=== PATIENT | male | born 1990 | race Caucasian/White ===

== ENCOUNTER → 2016-09-12 | Outpatient (REF) | payer MEDICAID ==
[2016-09-12 13:50] LABS: HEPATITIS B SURFACE ANTIBODY NEGATIVE (POSITIVE)
[2016-09-12 13:56] LABS: ALBUMIN 4.2 GM/DL (3.2-5.2); ALKALINE PHOSPHATASE 107 U/L (45-117); ALT/SGPT 16 U/L (12-78); ANION GAP 7 MEQ/L (8-16); AST/SGOT 12 U/L (15-37); BILIRUBIN,TOTAL 0.4 MG/DL (0.2-1.0); BLOOD UREA NITROGEN 17 MG/DL (7-18); CALCIUM LEVEL 9.7 MG/DL (8.5-10.1); CARBON DIOXIDE LEVEL 26 MEQ/L (21-32); CHLORIDE LEVEL 103 MEQ/L (98-107); CREATININE FOR GFR 1.11 MG/DL (0.70-1.30); GLOMERULAR FILTRATION RATE > 60.0 (>60); GLUCOSE, FASTING 81 MG/DL (70-105); POTASSIUM SERUM 4.5 MEQ/L (3.5-5.1); SODIUM LEVEL 136 MEQ/L (136-145); TOTAL PROTEIN 8.4 GM/DL (6.4-8.2)
== END ==
LOC: M SFHCPLAZ 10:25
PROVIDERS: ATTEND Internal Medicine Infectious Disease
DX: B20 Human immunodeficiency virus [HIV] disease (principal); B45.1 Cerebral cryptococcosis

== ENCOUNTER → 2016-10-11 | Outpatient (REF) | payer MEDICAID ==
[~2016-10-11] MED LIST: AZIT600T PO; CLAR10CA3 PO; FLUC200T2 PO; IBUP200T45 PO; IRON18TA2 PO; MEPR750S PO; MULT1TAB10 PO; ODEF1TAB PO
[2016-10-11 15:57] LABS: ALBUMIN 4.1 GM/DL (3.2-5.2); ALBUMIN/GLOBULIN RATIO 1.14 (1.00-1.93); ALKALINE PHOSPHATASE 118 U/L (45-117); ALT/SGPT 18 U/L (12-78); ANION GAP 8 MEQ/L (8-16); AST/SGOT 13 U/L (15-37); BILIRUBIN,TOTAL 0.4 MG/DL (0.2-1.0); BLOOD UREA NITROGEN 18 MG/DL (7-18); CALCIUM LEVEL 9.7 MG/DL (8.5-10.1); CARBON DIOXIDE LEVEL 26 MEQ/L (21-32); CHLORIDE LEVEL 101 MEQ/L (98-107); CREATININE FOR GFR 0.87 MG/DL (0.70-1.30); GLOMERULAR FILTRATION RATE > 60.0 (>60); GLUCOSE, FASTING 77 MG/DL (70-105); POTASSIUM SERUM 4.4 MEQ/L (3.5-5.1); SODIUM LEVEL 135 MEQ/L (136-145); TOTAL PROTEIN 7.7 GM/DL (6.4-8.2)
[2016-10-17 00:06] LABS: %CD3+CD4+CD8+ 0.4 % (Not Estab.); %CD3+CD4-CD8+ 73.4 % (Not Estab.); %CD3+CD4-CD8- 6.1 % (Not Estab.); ABS CD3+CD4+CD8+ 4 /uL (Not Estab.); ABS CD3+CD4+CD8- 60 /uL (Not Estab.); ABS CD3+CD4-CD8+ 734 /uL (Not Estab.); ABS CD3+CD4-CD8- 61 /uL (Not Estab.); CD4/CD8 NYSDOH RATIO 0.08 (Not Estab.); Eosinophils 6 % (.); HCT 40.1 % (37.5-51.0); HGB 13.3 g/dL (12.6-17.7); Monocytes 9 % (.); Neutrophils 65 % (.); WBC 5.4 x10E3/uL (3.4-10.8)
== END ==
LOC: M SFHCPLAZ 12:51
PROVIDERS: ATTEND Internal Medicine Infectious Disease
DX: B20 Human immunodeficiency virus [HIV] disease (principal)

== ENCOUNTER → 2016-10-25 | Outpatient (CLI) | payer OTHER ==
[~2016-10-25] MED LIST changes: +ISOVUE-370 76% 100ML VIAL (Q9967) As Ordered ONE
--- NOTE | 2016-10-25 11:00 | REP ---
CT CHEST WITH CONTRAST: 10/25/2016 COMPARISON: CTA chest 08/24/2016 at [facility] in [place], [place]. Portable chest 08/24/2016. CLINICAL HISTORY: Mediastinal and hilar lymphadenopathy. Followup. TECHNIQUE: Patient received a bolus of 75 mL of Isovue-370, scanning through the chest with coronal and sagittal reconstructions. FINDINGS: The lung taylor are well inflated. 6 mm nodule seen on image 53 of series 201 in the superior segment of the right lower lobe, unchanged. It does not appear calcified. In the right lower lobe . There is a superior segment noncalcified 6.4 mm nodule as before. There is some minor patchy peripheral atelectatic change in the lateral segment of the right middle lobe with perihilar interstitial changes about the right hilum. In the left lung field, there is a 2 mm nodule in the left upper lobe peripherally on image 39, 1-2 mm nodule on image 26 peripherally as well. There are no other nodules in the left lung. No pleural effusion, lateral pleural thickening, calcified pleural plaque, or pleural-based mass. Mediastinal hilar adenopathy is again seen. Subcarinal region shows a lymph node 1.8 cm in diameter, previously 22 mm. There is bilateral hilar adenopathy with short axis of conglomerate nodes at the right hilum up to 24 mm currently, previously 24 mm. There is confluent right paratracheal adenopathy at lease 6 x 0.6 cm long x 2.4 cm transverse, and it extends from the hilum upward. AP window, prevascular space nodes carinal nodes are also seen with the precarinal node 18 mm today, previously 16 mm. There are axillary nodes, larger left than right, with the largest single node having 11.7 mm short axis on that right side, all subcentimeter nodes on the left. I cannot confirm definite supraclavicular mass. Thyroid lobes symmetric. In the upper abdomen, the liver and spleen are seen only in part and are not grossly enlarged. There is no adrenal mass. No retrocrural mass. Visualized pancreas intact. Upper poles of kidneys intact. Chest wall soft tissues symmetric. Bone windows show sternum, manubrium, medial clavicles to the AC joints. Humeral heads, scapulae, and ribs all intact. No compression deformity or destructive lesion in the spine. The thoracic aorta is without aneurysm or dissection. The central pulmonary arteries are without filling defect. IMPRESSION: 1. Bilateral hilar and mediastinal adenopathy with bulky confluent nodes as described. Some of the nodes are smaller, other conglomerate nodes are larger and, overall, there is increase in the mediastinal and hilar adenopathy. 2. No aortic aneurysm or dissection. No central pulmonary emboli. 3. Axillary nodes bilaterally, right greater than left. No supraclavicular mass. 4. No cardiomegaly, pericardial thickening, or pericardial effusion. 5. Perihilar interstitial changes on the right adjacent to those nodes with a few small pulmonary nodules as described. These appear unchanged. The differential considerations would include lymphoma, sarcoidosis, infectious etiologies with granulomatous disease. There are no calcifications in any of these nodes. The bones are intact. No abnormalities in the upper abdomen. Signed by Magdy Dc MD 10/26/2016 10:54 A
== END ==
LOC: M RAD 08:15
PROVIDERS: ATTEND Internal Medicine Infectious Disease
DX: R59.0 Localized enlarged lymph nodes (principal)
CPT/HCPCS: 71260; Q9967

== ENCOUNTER → 2016-11-16 | Outpatient (CLI) | payer OTHER ==
[~2016-11-16] MED LIST changes: -ISOVUE-370 76% 100ML VIAL (Q9967) As Ordered ONE
--- NOTE | 2016-11-17 09:37 | REP ---
Clinical: Severe headaches with history of meningitis. Technique: Standard pre and post contrast MRI brain sequencing using 10 ml ProHance gadolinium based contrast material. Findings: The ventricles, sulci, and cisterns are symmetric and normal. Arteaga-white differentiation is maintained. No obvious mass or mass effect. No extra-axial fluid collection. No enhancing mass lesion or abnormality identified. Midbrain and midline structures are symmetric and normal. Incidental note is made of a 2.5 cm mucocele in the left maxillary sinus. Impression: Normal pre and postcontrast MRI of the brain. Signed by Norm Lopez MD 11/17/2016 09:29 A
== END ==
LOC: M RAD 15:13
PROVIDERS: ATTEND Internal Medicine Infectious Disease
DX: B45.1 Cerebral cryptococcosis (principal)
CPT/HCPCS: 70553; A9576

== ENCOUNTER 2016-11-21 11:33 | Day surgery (SDC) | payer OTHER ==
[~2016-11-21] VITALS: Ht 165.1 cm; Wt 53.5 kg
[~2016-11-21 11:33] MED LIST changes: -IBUP200T45 PO
[2016-11-21] MEDS ORDERED: LR 1,000 ML IV SCH ×2 (11:45→14:30)
[2016-11-21] MEDS ORDERED: IBUP200T45 PO (12:29)
[2016-11-21] MEDS ORDERED: MIDAZOLAM INJ 2 MG/2 ML VIAL (J2250) As Ordered ONE (12:43)
[2016-11-21] MEDS ORDERED: fentaNYL 100 MCG/2 ML INJECTION (J3010) As Ordered ONE ×2 (12:43→13:13)
[2016-11-21] MEDS ORDERED: EPINEPHrine 1MG/10ML SYRINGE 1.5IN As Ordered ONE (12:47)
[2016-11-21] MEDS ORDERED: LIDOCAINE 1% SDV INJ 30 ML VIAL As Ordered ONE (12:47)
[2016-11-21] MEDS ORDERED: THROMBIN SOLN 20,000 UNITS KIT As Ordered ONE (12:47)
[2016-11-21] MEDS ORDERED: LIDOCAINE VISCOUS 2% SOLN 15ML UDC As Ordered ONE (12:47)
[2016-11-21] MEDS ORDERED: CETACAINE SPRAY 20GM (FLOOR STOCK) As Ordered ONE (13:11)
[2016-11-21] MEDS ORDERED: ONDANSETRON 4MG/2ML VIAL (J2405) IV PRN (14:30)
[2016-11-21] MEDS ORDERED: fentaNYL 100 MCG/2 ML INJECTION (J3010) IV PRN (14:30)
--- NOTE | 2016-11-21 14:51 | RO ---
DATE OF PROCEDURE: 11/21/2016 PREOPERATIVE DIAGNOSIS: Mediastinal and hilar adenopathy. POSTOPERATIVE DIAGNOSIS: Mediastinal and hilar adenopathy with endobronchial lesions. FINDINGS: Lymphadenopathy with endobronchial lesions. PROCEDURE: Bronchoscopy with endobronchial biopsy, endobronchial ultrasound with fine-needle aspiration. PROCEDURALIST: Gene Spain DO FLIGHT FOLLOWER: None. ANESTHESIA: General. Please refer to their records for details. ESTIMATED BLOOD LOSS: 10-15 mL. DRAINS: No drains. SPECIMENS OBTAINED: 1. Left mainstem endobronchial biopsy, right middle lobe endobronchial biopsy, right lower lobe endobronchial biopsy. 2. Right middle lobe wash. 3. FNA right hilar and 4R lymph node FNAs under ultrasound for cell block and flow cytometry. 4. FNA wash for culture, fungal smear, PCP and cell count. DESCRIPTION OF PROCEDURE: After informed consent was reviewed with the patient in the preoperative area, he was brought back to OR number six. A time out was performed with patient identifiers, identifying correct site and correct procedure. The case was then handed over to anesthesia. Anesthesia intubated with an 8.5 endotracheal tube. After adequate anesthesia, I prepped the airway with Cetacaine spray. The 1T180 bronchoscope was then inserted into the airway after a second time out confirming correct site, correct position and with two patient identifiers. All airways were suctioned. Trachea was midline. Rachel was splayed. There were multiple endobronchial lesions predominantly in the bronchus intermedius, right middle lobe and right lower lobe; however, there was a large polyp in the left proximal mainstem. RB 1 through 3 was inspected without endobronchial lesions. RB 4 and 5 had no distal endobronchial lesion, however, there was a small polyps at the takeoff of the R5 airway. Multiple lesions in the proximal right lower lobe, however, the distal right lower lobe bronchus RB 6 through 10 was without obstructing lesion. LB 1 through 10 was clear without any obstructing polyps. The lesions were mucous filled. I then performed endobronchial biopsies and near removal of the polyp in the left mainstem. I then proceeded to the right middle lobe and removed a polyps there. I then removed polyps in the right lower lobe and bronchus intermedius. These were sent for pathology. I washed the airways and this was sent for culture, fungal culture, PCP. Then, after adequate sampling and hemostasis, there was significant bleeding from the biopsy of the left mainstem polyp. I treated this with epinephrine 1 mg. After adequate cessation of bleeding, the bronchoscope was removed and then the endobronchial ultrasound was inserted. The 4R node was then identified. Fine needle aspiration was taken of this multiple times for cell block, flow cytometry and culture. I then proceeded to sample from the right hilar lymph node. Pictures were taken of this. The subcarinal node was fairly small and adjacent to the larger blood vessels and there was significant tissue sampling from the 4R node so I did not sample from this area. The endobronchial ultrasound scope was then removed and the 1T180 bronchoscope was reinserted. Hemostasis was ensured and the bronchoscope was removed. The case was handed back over to anesthesia. The patient was extubated in recovery. Postprocedure chest x-ray is pending.
--- NOTE | 2016-11-21 16:08 | REP ---
Clinical: Status post bronchoscopy . Comparison: 08/24/2016 . Findings: Hilar adenopathy is suggested. The cardiac silhouette is normal. The lung taylor are clear without acute consolidation, effusion, or pneumothorax. Skeletal structures are intact. Impression: Suspected hilar adenopathy. No acute cardiopulmonary process otherwise noted. No pneumothorax. Signed by Norm Lopez MD 11/21/2016 03:59 P
[2016-11-21 16:30] VITALS: BP 138/90
[2016-11-21] MEDS ORDERED: ALBUTEROL SULFATE 2.5 MG/0.5 ML INH NEB SOLN As Ordered ONE (16:34)
[2016-11-21] MEDS ORDERED: ALBUTEROL SULFATE 2.5 MG/0.5 ML INH NEB SOLN INH ONE (17:00)
[2016-11-21 18:08] LABS: COLOR PINK (COLORLESS); TNC < 20 cells/uL (0-20)
[2016-11-21 18:09] LABS: BAL DIFF IF INDICATED? NO (NO)
== END 2016-11-21 16:45 | disposition home or self-care (01) ==
LOC: M SDC 11:33
PROVIDERS: ATTEND Internal Medicine Pulmonary Disease
DX: R59.0 Localized enlarged lymph nodes (principal); J98.09 Other diseases of bronchus, not elsewhere classified; B20 Human immunodeficiency virus [HIV] disease; B45.9 Cryptococcosis, unspecified; R07.9 Chest pain, unspecified; R06.02 Shortness of breath; R06.83 Snoring; Z88.0 Allergy status to penicillin; Z88.1 Allergy status to other antibiotic agents; Z88.8 Allergy status to other drugs, medicaments and biological substances; Z79.899 Other long term (current) drug therapy

== ENCOUNTER → 2016-11-23 | Outpatient (CLI) | payer OTHER ==
[~2016-11-23] MED LIST changes: +IBUP200T45 PO
[2016-11-23 13:09] LABS: INR 0.94
[2016-11-23 13:21] LABS: BASO % 0.4 % (0.0-1.0); EOS # 0.2 K/mm3 (0.0-0.50); EOS % 2.2 % (0.0-3.0); LARGE UNSTAINED CELL % 1.6 % (0.0-4.0); LYMPH % 13.8 % (24.0-44.0); MEAN CORPUSCULAR HEMOGLOBIN 31.5 pg (27.0-33.0); MEAN CORPUSCULAR HGB CONC 34.4 g/dl (32.0-36.5); MEAN CORPUSCULAR VOLUME 91.6 fl (80.0-96.0); MONO # 0.5 K/mm3 (0.0-0.8); NEUTROPHILS # 5.4 K/mm3 (1.8-7.7); NEUTROPHILS % 74.9 % (36.0-66.0); PLATELET COUNT, AUTOMATED 215 k/mm3 (150-450); RED CELL DISTRIBUTION WIDTH 13.7 % (11.5-14.5); WHITE BLOOD COUNT 7.2 K/mm3 (4.0-10.0)
[2016-11-23 13:22] LABS: LARGE UNSTAINED CELL # 0.1 K/mm3 (0.0-0.4)
[2016-11-23 14:51] LABS: GLUCOSE CSF 51 MG/DL (40-75)
[2016-11-23 15:25] LABS: ALBUMIN 3.8 GM/DL (3.2-5.2); ALKALINE PHOSPHATASE 92 U/L (45-117); ALT/SGPT 23 U/L (12-78); ANION GAP 9 MEQ/L (8-16); AST/SGOT 12 U/L (15-37); BILIRUBIN,TOTAL 0.2 MG/DL (0.2-1.0); BLOOD UREA NITROGEN 17 MG/DL (7-18); CALCIUM LEVEL 9.6 MG/DL (8.5-10.1); CARBON DIOXIDE LEVEL 27 MEQ/L (21-32); CHLORIDE LEVEL 109 MEQ/L (98-107); CREATININE FOR GFR 0.93 MG/DL (0.70-1.30); GLOMERULAR FILTRATION RATE > 60.0 (>60); GLUCOSE, FASTING 81 MG/DL (70-105); POTASSIUM SERUM 3.9 MEQ/L (3.5-5.1); SODIUM LEVEL 145 MEQ/L (136-145); TOTAL PROTEIN 7.6 GM/DL (6.4-8.2)
[2016-11-23 16:44] LABS: RBC CSF AUTO 4 /mm3 (0-0); WBC CSF AUTO 2 /mm3 (0-10)
--- NOTE | 2016-11-23 16:55 | REP ---
Procedure: For guidance for lumbar puncture. History: Meningitis The procedure was performed under the direct supervision of Dr. Boyd. The risks and benefits of the procedure were explained to the patient and informed consent was obtained. The L3-4 interspace was localized using fluoroscopic guidance. The skin was prepped and draped in a sterile fashion. 1% lidocaine was used as a local anesthetic. Using fluoroscopic guidance a 22-gauge spinal needle was inserted and advanced into the thecal sac. opening pressure measured 21 cm of water. 12 ml of spinal fluid was withdrawn and sent to lab. The the patient tolerated the procedure well and there were no immediate complications. 5 seconds of fluoro time was utilized for this procedure. Reviewed by ALISA Blackwell 11/23/2016 04:29 PSigned by Efe Boyd MD 11/23/2016 04:47 P
[2016-11-23 17:09] LABS: APPEARANCE, CSF CLEAR (CLEAR); COLOR, CSF COLORLESS (COLORLESS); CSF DIFF IF INDICATED? NO (NO); CSF TUBE# CELL CNT TUBE 4
[2016-11-23 22:35] LABS: CSF DILUENT LOT # 6333
[2016-11-25 00:06] LABS: %CD3+CD4+CD8+ 0.2 % (Not Estab.); %CD3+CD4+CD8- 6.2 % (Not Estab.); %CD3+CD4-CD8+ 70.1 % (Not Estab.); %CD3+CD4-CD8- 4.8 % (Not Estab.); ABS CD3+CD4+CD8+ 2 /uL (Not Estab.); ABS CD3+CD4+CD8- 56 /uL (Not Estab.); ABS CD3+CD4-CD8+ 631 /uL (Not Estab.); ABS CD3+CD4-CD8- 43 /uL (Not Estab.); CD4/CD8 NYSDOH RATIO 0.09 (Not Estab.); Eosinophils 2 % (.); HGB 14.5 g/dL (12.6-17.7); Monocytes 11 % (.); Neutrophils 71 % (.); WBC 5.7 x10E3/uL (3.4-10.8)
[2016-11-27 00:06] LABS: CRYPTOCOCCUS ANTIGEN SER Negative (Negative)
[2016-12-25 11:13] LABS: CRYPTOCOCCUS ANTIGEN CSF POSITIVE
[2016-12-25 11:14] LABS: CAP MANDATED REFLEX TO CULTURE SEE SEPARATE REPORT
== END ==
LOC: M LAB 12:21
PROVIDERS: ATTEND Internal Medicine Infectious Disease
DX: B45.1 Cerebral cryptococcosis (principal)

== ENCOUNTER → 2017-03-19 | Outpatient (REF) | payer OTHER ==
[2017-03-19 14:09] LABS: ALBUMIN 4.4 GM/DL (3.2-5.2); ALBUMIN/GLOBULIN RATIO 1.38 (1.00-1.93); ALKALINE PHOSPHATASE 110 U/L (45-117); ALT/SGPT 27 U/L (12-78); ANION GAP 8 MEQ/L (8-16); AST/SGOT 18 U/L (7-37); BILIRUBIN,TOTAL 0.4 MG/DL (0.2-1.0); BLOOD UREA NITROGEN 11 MG/DL (7-18); CALCIUM LEVEL 9.4 MG/DL (8.5-10.1); CARBON DIOXIDE LEVEL 27 MEQ/L (21-32); CHLORIDE LEVEL 104 MEQ/L (98-107); CREATININE FOR GFR 1.09 MG/DL (0.70-1.30); GLOMERULAR FILTRATION RATE > 60.0 (>60); GLUCOSE, FASTING 77 MG/DL (70-105); POTASSIUM SERUM 4.4 MEQ/L (3.5-5.1); SODIUM LEVEL 139 MEQ/L (136-145); TOTAL PROTEIN 7.6 GM/DL (6.4-8.2)
[2017-03-19 18:44] LABS: APPEARANCE, URINE CLEAR (CLEAR); BACTERIA, URINE AUTO NEGATIVE (NEGATIVE); BILIRUBIN, URINE AUTO NEGATIVE (NEGATIVE); BLOOD, URINE BLOOD NEGATIVE (NEGATIVE); COLOR, URINE YELLOW (YELLOW); GLUCOSE, URINE (UA) AUTO NEGATIVE (NEGATIVE); KETONE, URINE AUTO NEGATIVE (NEGATIVE); LEUKOCYTE ESTERASE, URINE AUTO NEGATIVE (NEGATIVE); NITRITE, URINE AUTO NEGATIVE (NEGATIVE); PROTEIN, URINE AUTO NEGATIVE (NEGATIVE); RBC, URINE AUTO 0 /HPF (0-3); SPECIFIC GRAVITY URINE AUTO 1.005 (1.002-1.035); SQUAMOUS EPITHELIAL CELL UR AU 0 /HPF (0-6); UROBILINOGEN, URINE AUTO 0.2 mg/dL (0.0-2.0); WBC, URINE AUTO 0 /HPF (0-3)
[2017-03-19 21:14] LABS: CHLAMYDIA DNA AMPLIFICATION NEGATIVE (NEGATIVE); GC DNA AMPLIFICATION NEGATIVE (NEGATIVE)
[2017-03-21 14:13] LABS: HIV-1 RNA PCR QUANT 2 LC550285 <20 copies/mL (.)
[2017-03-22 00:07] LABS: % CD8 Pos Lymph 65.8 % (12.0-35.5); %CD4 Pos Lymphs 11.6 % (30.8-58.5); ABS Eosinophils 0.2 x10E3/uL (0.0-0.4); ABS Lymphs 0.9 x10E3/uL (0.7-3.1); ABS Monocytes 0.5 x10E3/uL (0.1-0.9); Abs CD4 Helper 104 /uL (359-1519); Abs CD8 Suppres 592 /uL (109-897); CD4/CD8 Ratio 0.18 (0.92-3.72); CRYPTOCOCCUS ANTIGEN SER Negative (Negative); Eosinophils 5 % (Not Estab.); HCT 43.7 % (37.5-51.0); HGB 14.8 g/dL (13.0-17.7); Immature Grans 0 % (Not Estab.); Lymphocytes 25 % (Not Estab.); MCH 30.6 pg (26.6-33.0); MCHC 33.9 g/dL (31.5-35.7); MCV 91 fL (79-97); Monocytes 13 % (Not Estab.); Neutrophils 56 % (Not Estab.); Platelets 224 x10E3/uL (150-379); RBC 4.83 x10E6/uL (4.14-5.80); RDW 14.6 % (12.3-15.4); WBC 3.6 x10E3/uL (3.4-10.8)
== END ==
LOC: M SFHCPLAZ 10:34
DX: B20 Human immunodeficiency virus [HIV] disease (principal); B45.1 Cerebral cryptococcosis

== ENCOUNTER → 2017-03-19 | Outpatient (CLI) | payer OTHER | LOC: M RAD 09:33 | DX: B20 Human immunodeficiency virus [HIV] disease (principal); R59.0 Localized enlarged lymph nodes | CPT/HCPCS: 71250 ==

== ENCOUNTER → 2017-06-04 | Outpatient (CLI) | payer OTHER | LOC: M ADAMS 16:16 | DX: J40 Bronchitis, not specified as acute or chronic (principal) | CPT/HCPCS: 71046 ==

== ENCOUNTER → 2017-06-20 | Outpatient (CLI) | payer OTHER ==
[~2017-06-20] MED LIST changes: -AZIT600T PO; -CLAR10CA3 PO; -FLUC200T2 PO; -IBUP200T45 PO; -IRON18TA2 PO; +ISOVUE-370 76% 100ML VIAL (Q9967) As Ordered; -MEPR750S PO; -MULT1TAB10 PO; -ODEF1TAB PO
== END ==
LOC: M RAD 15:52
DX: R59.9 Enlarged lymph nodes, unspecified (principal)
CPT/HCPCS: Q9967

== ENCOUNTER → 2017-07-08 | Outpatient (CLI) | payer OTHER ==
[~2017-07-08] MED LIST changes: -ISOVUE-370 76% 100ML VIAL (Q9967) As Ordered; +PROHANCE 279.3MG/ML 5ML VIAL (A9576) As Ordered
== END ==
LOC: M RAD 15:31
DX: R51 Headache (principal); B45.1 Cerebral cryptococcosis
CPT/HCPCS: A9576

== ENCOUNTER → 2017-07-17 | Outpatient (REF) | payer BC, OTHER ==
[2017-07-17 19:33] LABS: ALBUMIN/GLOBULIN RATIO 1.21 (1.00-1.93); ALKALINE PHOSPHATASE 114 U/L (45-117); ALT/SGPT 18 U/L (12-78); ANION GAP 6 MEQ/L (8-16); AST/SGOT 13 U/L (7-37); BILIRUBIN,TOTAL 0.5 MG/DL (0.2-1.0); BLOOD UREA NITROGEN 16 MG/DL (7-18); CALCIUM LEVEL 8.9 MG/DL (8.5-10.1); CARBON DIOXIDE LEVEL 27 MEQ/L (21-32); CHLORIDE LEVEL 107 MEQ/L (98-107); GLOMERULAR FILTRATION RATE > 60.0 (>60); GLUCOSE, FASTING 74 MG/DL (70-100); SODIUM LEVEL 140 MEQ/L (136-145); TOTAL PROTEIN 7.3 GM/DL (6.4-8.2)
[2017-07-20 08:30] LABS: %CD4 Pos Lymphs 15.7 % (30.8-58.5); ABS Eosinophils 0.2 x10E3/uL (0.0-0.4); ABS Lymphs 1.3 x10E3/uL (0.7-3.1); ABS Monocytes 0.4 x10E3/uL (0.1-0.9); ABS Neutophils 2.3 x10E3/uL (1.4-7.0); Abs CD4 Helper 204 /uL (359-1519); Abs CD8 Suppres 832 /uL (109-897); CD4/CD8 Ratio 0.25 (0.92-3.72); Eosinophils 4 % (Not Estab.); HCT 41.7 % (37.5-51.0); HIV-1 RNA PCR QUANT 2 LC550285 <20 copies/mL (.); Immature Grans 0 % (Not Estab.); Lymphocytes 31 % (Not Estab.); MCHC 33.6 g/dL (31.5-35.7); MCV 92 fL (79-97); Monocytes 10 % (Not Estab.); Neutrophils 54 % (Not Estab.); Platelets 194 x10E3/uL (150-379); RBC 4.52 x10E6/uL (4.14-5.80); RDW 14.8 % (12.3-15.4); WBC 4.3 x10E3/uL (3.4-10.8)
== END ==
LOC: M SFHCPLAZ 17:09
DX: B20 Human immunodeficiency virus [HIV] disease (principal)
CPT/HCPCS: 80053

== ENCOUNTER → 2017-07-17 | Outpatient (REF) | payer BC, OTHER ==
[2017-07-18 11:54] LABS: HEMATOCRIT 40.1 % (42.0-52.0); HEMOGLOBIN 13.7 g/dl (13.5-17.5); RED BLOOD COUNT 4.49 10^6/uL (4.30-6.10); WHITE BLOOD COUNT 4.5 10^3/uL (4.0-10.0)
[2017-07-18 11:55] LABS: IMMATURE GRANULOCYTE % 0.2 % (0-3.0); LYMPH % 29.8 % (24.0-44.0); MEAN CORPUSCULAR HEMOGLOBIN 30.5 pg (27.0-33.0); MEAN CORPUSCULAR HGB CONC 34.2 g/dl (32.0-36.5); MEAN CORPUSCULAR VOLUME 89.3 fl (80.0-96.0); MONO % 12.4 % (0.0-5.0); NEUTROPHILS % 53.2 % (36.0-66.0); PLATELET COUNT, AUTOMATED 208 10^3/uL (150-450); RED CELL DISTRIBUTION WIDTH 13.9 % (11.5-14.5)
[2017-07-18 11:56] LABS: BASO % 0.4 % (0.0-1.0); EOS # 0.2 10^3/uL (0.0-0.50); LYMPH # 1.4 10^3/uL (1.5-6.5); MONO # 0.6 10^3/uL (0.0-0.8); NEUTROPHILS # 2.4 10^3/uL (1.8-7.7)
[2017-07-18 11:57] LABS: ERYTHROCYTE SEDIMENTATION RATE 5 mm/hr (0-15)
[2017-07-18 12:25] LABS: TOTAL 25(OH) VITAMIN D 32.5 NG/ML (30.0-100.0)
[2017-07-18 12:28] LABS: ALBUMIN/GLOBULIN RATIO 1.33 (1.00-1.93); ALKALINE PHOSPHATASE 107 U/L (45-117); ALT/SGPT 20 U/L (12-78); ANION GAP 8 MEQ/L (8-16); AST/SGOT 13 U/L (7-37); BILIRUBIN,TOTAL 0.4 MG/DL (0.2-1.0); BLOOD UREA NITROGEN 15 MG/DL (7-18); CALCIUM LEVEL 8.9 MG/DL (8.5-10.1); CARBON DIOXIDE LEVEL 26 MEQ/L (21-32); CHLORIDE LEVEL 106 MEQ/L (98-107); GLOMERULAR FILTRATION RATE > 60.0 (>60); GLUCOSE, FASTING 69 MG/DL (70-100); RHEUMATOID FACTOR QUANT < 10.0 IU/ML (<15.0); SODIUM LEVEL 140 MEQ/L (136-145)
[2017-07-19 14:13] LABS: ANTINUCLEAR ANTIBODIES DIRECT Negative (Negative)
== END ==
LOC: M LABDRAWC 11:34
DX: R51 Headache (principal)
CPT/HCPCS: 84443

== ENCOUNTER → 2017-11-28 | Outpatient (REF) | payer BC ==
[2017-11-28 14:13] LABS: ALBUMIN 4.9 GM/DL (3.2-5.2); ALKALINE PHOSPHATASE 87 U/L (45-117); ALT/SGPT 26 U/L (12-78); ANION GAP 8 MEQ/L (8-16); AST/SGOT 14 U/L (7-37); BILIRUBIN,TOTAL 0.5 MG/DL (0.2-1.0); BLOOD UREA NITROGEN 15 MG/DL (7-18); CALCIUM LEVEL 10.3 MG/DL (8.5-10.1); CARBON DIOXIDE LEVEL 27 MEQ/L (21-32); CHLORIDE LEVEL 105 MEQ/L (98-107); CREATININE FOR GFR 0.93 MG/DL (0.70-1.30); GLOMERULAR FILTRATION RATE > 60.0 (>60); GLUCOSE, FASTING 66 MG/DL (70-100); POTASSIUM SERUM 4.7 MEQ/L (3.5-5.1); SODIUM LEVEL 140 MEQ/L (136-145); TOTAL PROTEIN 8.4 GM/DL (6.4-8.2)
[2017-12-03 00:07] LABS: ABS Eosinophils 0.1 x10E3/uL (0.0-0.4); ABS Lymphs 0.9 x10E3/uL (0.7-3.1); ABS Monocytes 0.5 x10E3/uL (0.1-0.9); ABS Neutophils 2.4 x10E3/uL (1.4-7.0); Abs CD4 Helper 171 /uL (359-1519); Abs CD8 Suppres 522 /uL (109-897); CD4/CD8 Ratio 0.33 (0.92-3.72); CRYPTOCOCCUS ANTIGEN SER Positive (Negative); Eosinophils 2 % (Not Estab.); HCT 47.9 % (37.5-51.0); HGB 16.6 g/dL (13.0-17.7); HIV-1 RNA PCR QUANT 2 LC550285 <20 copies/mL (.); Immature Grans 0 % (Not Estab.); Lymphocytes 22 % (Not Estab.); MCH 31.1 pg (26.6-33.0); MCHC 34.7 g/dL (31.5-35.7); MCV 90 fL (79-97); Monocytes 14 % (Not Estab.); Neutrophils 61 % (Not Estab.); Platelets 198 x10E3/uL (150-379); RBC 5.33 x10E6/uL (4.14-5.80); RDW 14.3 % (12.3-15.4); WBC 3.9 x10E3/uL (3.4-10.8)
== END ==
LOC: M SFHCPLAZ 10:58
DX: B20 Human immunodeficiency virus [HIV] disease (principal); B45.1 Cerebral cryptococcosis
CPT/HCPCS: 80053

== ENCOUNTER → 2017-12-06 | Outpatient (REF) | payer BC | LOC: M LAB REF 12:26 | DX: J02.9 Acute pharyngitis, unspecified (principal) | CPT/HCPCS: 87081 ==

== ENCOUNTER 2017-12-26 12:27 | Emergency (ER) | payer BC ==
[2017-12-26] MEDS: NS 1,000 ML IV (14:18)
[2017-12-26 14:26] LABS: BASO % 0.2 % (0.0-1.0); EOS # 0.1 10^3/uL (0.0-0.50); EOS % 1.4 % (0.0-3.0); HEMATOCRIT 46.5 % (42.0-52.0); IMMATURE GRANULOCYTE % 0.2 % (0-3.0); LYMPH # 1.2 10^3/uL (1.5-6.5); LYMPH % 21.2 % (24.0-44.0); MEAN CORPUSCULAR HGB CONC 34.4 g/dl (32.0-36.5); MEAN CORPUSCULAR VOLUME 90.1 fl (80.0-96.0); MONO # 0.5 10^3/uL (0.0-0.8); MONO % 9.1 % (0.0-5.0); NEUTROPHILS # 3.8 10^3/uL (1.8-7.7); NEUTROPHILS % 67.9 % (36.0-66.0); PLATELET COUNT, AUTOMATED 214 10^3/uL (150-450); RED BLOOD COUNT 5.16 10^6/uL (4.30-6.10); RED CELL DISTRIBUTION WIDTH 13.6 % (11.5-14.5); WHITE BLOOD COUNT 5.6 10^3/uL (4.0-10.0)
[2017-12-26 14:45] LABS: LACTIC ACID SEPSIS PROTOCOL 0.5 MMOL/L (0.4-2.0)
[2017-12-26 14:45] LABS: ALBUMIN 4.6 GM/DL (3.2-5.2); ALBUMIN/GLOBULIN RATIO 1.48 (1.00-1.93); ALKALINE PHOSPHATASE 87 U/L (45-117); ALT/SGPT 26 U/L (12-78); ANION GAP 9 MEQ/L (8-16); AST/SGOT 15 U/L (7-37); BILIRUBIN,DIRECT 0.2 MG/DL (0.0-0.2); BILIRUBIN,TOTAL 0.6 MG/DL (0.2-1.0); BLOOD UREA NITROGEN 15 MG/DL (7-18); C REACTIVE PROTEIN QUANTITATIV < 0.30 MG/DL (0.00-0.30); CALCIUM LEVEL 9.9 MG/DL (8.5-10.1); CARBON DIOXIDE LEVEL 27 MEQ/L (21-32); CHLORIDE LEVEL 105 MEQ/L (98-107); CREATININE FOR GFR 0.99 MG/DL (0.70-1.30); GLOMERULAR FILTRATION RATE > 60.0 (>60); GLUCOSE, FASTING 81 MG/DL (70-100); POTASSIUM SERUM 4.2 MEQ/L (3.5-5.1); SODIUM LEVEL 141 MEQ/L (136-145); TOTAL PROTEIN 7.7 GM/DL (6.4-8.2)
[2017-12-26 15:04] LABS: ERYTHROCYTE SEDIMENTATION RATE 2 mm/hr (0-15)
[2017-12-26 16:30] LABS: KETONE, URINE AUTO RFX TRACE mg/dL (NEGATIVE); LEUKOCYTE ESTERASE UR AUTO RFX NEGATIVE (NEGATIVE); NITRITE, URINE AUTO RFX NEGATIVE (NEGATIVE); RBC, URINE AUTO RFX 0 /HPF (0-3); SPECIFIC GRAVITY UR AUTO RFX 1.005 (1.002-1.035); SQUAM EPITHELIAL CELL UR AURFX 0 /HPF (0-6); WBC, URINE AUTO RFX 0 /HPF (0-3)
[2017-12-26] MEDS ORDERED: PROHANCE 279.3MG/ML 5ML VIAL (A9576) As Ordered (18:00)
[2017-12-26] MEDS: ACETAMINOPHEN 325 MG TAB PO (19:53)
[2017-12-26] MEDS: METOCLOPRAMIDE INJ 10MG/2ML VIAL (J2765) IV (19:54)
== END 2017-12-26 21:18 | disposition home or self-care (01) ==
LOC: M ED 12:27
DX: G44.209 Tension-type headache, unspecified, not intractable (principal); Z21 Asymptomatic human immunodeficiency virus [HIV] infection status; Z88.0 Allergy status to penicillin; Z88.8 Allergy status to other drugs, medicaments and biological substances
CPT/HCPCS: A9576

== ENCOUNTER → 2018-01-24 | Outpatient (CLI) | payer BC | LOC: M PAIN 13:00 | DX: G43.709 Chronic migraine without aura, not intractable, without status migrainosus (principal); Z21 Asymptomatic human immunodeficiency virus [HIV] infection status; J30.2 Other seasonal allergic rhinitis; Z79.899 Other long term (current) drug therapy; Z88.0 Allergy status to penicillin; Z88.8 Allergy status to other drugs, medicaments and biological substances; Z86.61 Personal history of infections of the central nervous system | CPT/HCPCS: G0463 ==

== ENCOUNTER 2018-02-05 07:56 | Emergency (ER) | payer BC ==
[2018-02-05] MEDS: KETOROLAC 30 MG/ML VIAL (J1885) IV (09:13)
[2018-02-05] MEDS: NS 1,000 ML IV (09:20)
[2018-02-05] MEDS: METOCLOPRAMIDE INJ 10MG/2ML VIAL (J2765) IV (09:20)
[2018-02-05 09:29] LABS: BASO % 0.3 % (0.0-1.0); EOS # 0.1 10^3/uL (0.0-0.50); EOS % 1.4 % (0.0-3.0); HEMATOCRIT 47.7 % (42.0-52.0); HEMOGLOBIN 16.4 g/dl (13.5-17.5); IMMATURE GRANULOCYTE % 0.3 % (0-3.0); LYMPH # 0.6 10^3/uL (1.5-6.5); MEAN CORPUSCULAR HEMOGLOBIN 30.9 pg (27.0-33.0); MEAN CORPUSCULAR HGB CONC 34.4 g/dl (32.0-36.5); MEAN CORPUSCULAR VOLUME 89.8 fl (80.0-96.0); MONO # 0.6 10^3/uL (0.0-0.8); MONO % 7.5 % (0.0-5.0); NEUTROPHILS # 6.6 10^3/uL (1.8-7.7); NEUTROPHILS % 82.5 % (36.0-66.0); PLATELET COUNT, AUTOMATED 183 10^3/uL (150-450); RED BLOOD COUNT 5.31 10^6/uL (4.30-6.10); RED CELL DISTRIBUTION WIDTH 13.1 % (11.5-14.5)
[2018-02-05 10:14] LABS: ANION GAP 4 MEQ/L (8-16); BLOOD UREA NITROGEN 14 MG/DL (7-18); CALCIUM LEVEL 8.9 MG/DL (8.5-10.1); CARBON DIOXIDE LEVEL 29 MEQ/L (21-32); CHLORIDE LEVEL 106 MEQ/L (98-107); CREATININE FOR GFR 0.98 MG/DL (0.70-1.30); GLOMERULAR FILTRATION RATE > 60.0 (>60); GLUCOSE, FASTING 88 MG/DL (70-100); POTASSIUM SERUM 4.3 MEQ/L (3.5-5.1); SODIUM LEVEL 139 MEQ/L (136-145)
== END 2018-02-05 12:57 | disposition home or self-care (01) ==
LOC: M ED 07:56
DX: G97.1 Other reaction to spinal and lumbar puncture (principal); B20 Human immunodeficiency virus [HIV] disease; Z79.899 Other long term (current) drug therapy; Z88.0 Allergy status to penicillin; Z88.8 Allergy status to other drugs, medicaments and biological substances
CPT/HCPCS: J1885

== ENCOUNTER 2018-02-05 13:14 | Outpatient (CLI) | payer BC | END 2018-02-05 15:50 | disposition home or self-care (01) | LOC: M OPP 13:14 → M RROUT 15:50 | DX: T88.59XA Other complications of anesthesia, initial encounter (principal) | CPT/HCPCS: 62273 ==

== ENCOUNTER → 2018-02-05 | Outpatient (REF) | payer BC | LOC: M LAB REF 09:58 | DX: G96.9 Disorder of central nervous system, unspecified (principal) | CPT/HCPCS: 36415 ==

== ENCOUNTER → 2018-02-17 | Outpatient (REF) | payer BC ==
[2018-02-17 16:23] LABS: ALBUMIN 4.2 GM/DL (3.2-5.2); ALKALINE PHOSPHATASE 80 U/L (45-117); ALT/SGPT 20 U/L (12-78); ANION GAP 4 MEQ/L (8-16); AST/SGOT 12 U/L (7-37); BILIRUBIN,TOTAL 0.3 MG/DL (0.2-1.0); BLOOD UREA NITROGEN 17 MG/DL (7-18); CALCIUM LEVEL 9.2 MG/DL (8.5-10.1); CARBON DIOXIDE LEVEL 30 MEQ/L (21-32); CHLORIDE LEVEL 106 MEQ/L (98-107); CREATININE FOR GFR 0.93 MG/DL (0.70-1.30); GLOMERULAR FILTRATION RATE > 60.0 (>60); GLUCOSE, FASTING 83 MG/DL (70-100); POTASSIUM SERUM 4.5 MEQ/L (3.5-5.1); SODIUM LEVEL 140 MEQ/L (136-145); TOTAL PROTEIN 7.2 GM/DL (6.4-8.2)
[2018-02-20 14:16] LABS: % CD8 Pos Lymph 57.6 % (12.0-35.5); %CD4 Pos Lymphs 19.4 % (30.8-58.5); ABS Eosinophils 0.1 x10E3/uL (0.0-0.4); ABS Lymphs 1.2 x10E3/uL (0.7-3.1); ABS Monocytes 0.6 x10E3/uL (0.1-0.9); ABS Neutophils 2.8 x10E3/uL (1.4-7.0); Abs CD4 Helper 233 /uL (359-1519); Abs CD8 Suppres 691 /uL (109-897); CD4/CD8 Ratio 0.34 (0.92-3.72); Eosinophils 2 % (Not Estab.); HCT 45.2 % (37.5-51.0); HGB 15.2 g/dL (13.0-17.7); HIV-1 RNA PCR QUANT 2 LC550285 <20 copies/mL (.); Immature Grans 0 % (Not Estab.); Lymphocytes 26 % (Not Estab.); MCH 31.1 pg (26.6-33.0); MCHC 33.6 g/dL (31.5-35.7); MCV 92 fL (79-97); Monocytes 12 % (Not Estab.); Neutrophils 60 % (Not Estab.); Platelets 245 x10E3/uL (150-379); RBC 4.89 x10E6/uL (4.14-5.80); RDW 14.3 % (12.3-15.4); WBC 4.7 x10E3/uL (3.4-10.8)
== END ==
LOC: M SFHCPLAZ 13:14
DX: B20 Human immunodeficiency virus [HIV] disease (principal)
CPT/HCPCS: 80053

== ENCOUNTER → 2018-06-10 | Outpatient (REF) | payer BC ==
[~2018-06-10] MED LIST changes: +AZIT600T PO; +BACT800T5 PO; +CLAR10CA3 PO; +CYCL10TA PO; +FLUC200T2 PO; +GABA-1171; +IBUP200T45 PO; +IMIT50TA PO; +IRON18TA2 PO; +MEPR750S PO; +MULT1TAB10 PO; +NORC1TAB4 PO; +NORT10CA2; +ODEF1TAB PO; -PROHANCE 279.3MG/ML 5ML VIAL (A9576) As Ordered; +REGL10TA6 PO
[2018-06-10 17:03] LABS: ALBUMIN 4.5 GM/DL (3.2-5.2); ALT/SGPT 22 U/L (12-78); BILIRUBIN,TOTAL 0.5 MG/DL (0.2-1.0); BLOOD UREA NITROGEN 20 MG/DL (7-18); CALCIUM LEVEL 9.5 MG/DL (8.5-10.1); CARBON DIOXIDE LEVEL 27 MEQ/L (21-32); CHLORIDE LEVEL 104 MEQ/L (98-107); CREATININE FOR GFR 1.12 MG/DL (0.70-1.30); GLOMERULAR FILTRATION RATE > 60.0 (>60); GLUCOSE, FASTING 73 MG/DL (70-100); POTASSIUM SERUM 4.1 MEQ/L (3.5-5.1); SODIUM LEVEL 139 MEQ/L (136-145); TOTAL PROTEIN 7.6 GM/DL (6.4-8.2)
[2018-06-10 17:10] LABS: VITAMIN B12 LEVEL 869 PG/ML
[2018-06-10 17:12] LABS: FOLATE 13.6 NG/ML
[2018-06-10 19:42] LABS: APPEARANCE, URINE CLEAR (CLEAR); BACTERIA, URINE AUTO NEGATIVE (NEGATIVE); BILIRUBIN, URINE AUTO NEGATIVE (NEGATIVE); BLOOD, URINE BLOOD NEGATIVE (NEGATIVE); COLOR, URINE COLORLESS (YELLOW); GLUCOSE, URINE (UA) AUTO NEGATIVE (NEGATIVE); KETONE, URINE AUTO NEGATIVE (NEGATIVE); LEUKOCYTE ESTERASE, URINE AUTO NEGATIVE (NEGATIVE); MUCUS, URINE SMALL (NEGATIVE); NITRITE, URINE AUTO NEGATIVE (NEGATIVE); PROTEIN, URINE AUTO NEGATIVE (NEGATIVE); RBC, URINE AUTO 0 /HPF (0-3); SPECIFIC GRAVITY URINE AUTO 1.003 (1.002-1.035); SQUAMOUS EPITHELIAL CELL UR AU 0 /HPF (0-6); UROBILINOGEN, URINE AUTO 0.2 mg/dL (0.0-2.0); WBC, URINE AUTO 0 /HPF (0-3)
[2018-06-10 20:46] LABS: CHLAMYDIA DNA AMPLIFICATION NEGATIVE (NEGATIVE); GC DNA AMPLIFICATION NEGATIVE (NEGATIVE)
[2018-06-11 11:13] LABS: HEPATITIS C VIRUS ABY INDEX 0.1 INDEX (<0.8)
[2018-06-13 00:07] LABS: % CD8 Pos Lymph 54.6 % (12.0-35.5); %CD4 Pos Lymphs 22.8 % (30.8-58.5); ABS Eosinophils 0.1 x10E3/uL (0.0-0.4); ABS Lymphs 1.7 x10E3/uL (0.7-3.1); ABS Monocytes 0.5 x10E3/uL (0.1-0.9); ABS Neutophils 3.8 x10E3/uL (1.4-7.0); Abs CD4 Helper 388 /uL (359-1519); Abs CD8 Suppres 928 /uL (109-897); CD4/CD8 Ratio 0.42 (0.92-3.72); Eosinophils 2 % (Not Estab.); HCT 47.2 % (37.5-51.0); HGB 15.8 g/dL (13.0-17.7); Immature Grans 0 % (Not Estab.); Lymphocytes 28 % (Not Estab.); MCH 30.7 pg (26.6-33.0); MCHC 33.5 g/dL (31.5-35.7); MCV 92 fL (79-97); Monocytes 8 % (Not Estab.); Neutrophils 62 % (Not Estab.); Platelets 235 x10E3/uL (150-379); RBC 5.14 x10E6/uL (4.14-5.80); RDW 13.9 % (12.3-15.4)
[2018-06-14 00:07] LABS: HIV-1 RNA PCR QUANT 2 LC550285 <20 copies/mL (.)
== END ==
LOC: M SFHCPLAZ 14:23 → M SFHCADAM 14:25
PROVIDERS: ATTEND Internal Medicine Infectious Disease
DX: B20 Human immunodeficiency virus [HIV] disease (principal); R20.0 Anesthesia of skin

== ENCOUNTER 2018-06-16 09:41 | Emergency (ER) | payer BC ==
[~2018-06-16] VITALS: Ht 165.1 cm; Wt 58.2 kg
[~2018-06-16 09:41] MED LIST changes: -AZIT600T PO; -GABA-1171; -NORC1TAB4 PO; +NORC1TAB7 PO; +[UNRECOGNIZED DRUG - CODE] PO
[2018-06-16] MEDS ORDERED: GABA-1171 (09:53)
--- NOTE | 2018-06-16 11:10 | REP ---
Right elbow: Four views. History: Pain after fall. Findings: Four views right elbow show normal bones, joints and soft tissues. There is no evidence of fracture or subluxation or joint effusion. Impression: Negative right elbow radiographs. Electronically Signed by Efe Boyd MD 06/16/2018 11:01 A
--- NOTE | 2018-06-16 11:11 | REP ---
Left knee series: Five views. History: Trauma. Injury in a fall. Findings: Five views of the left knee demonstrate normal bones, joints and soft tissues. Impression: Negative left knee radiographs. Electronically Signed by Efe Boyd MD 06/16/2018 11:02 A
--- NOTE | 2018-06-16 11:12 | REP ---
Right wrist series: Four views. History: Injury in a fall. Findings: Four views right wrist show overall normal mineralization. No fracture or subluxation is seen. Impression: Negative right wrist radiographs. Electronically Signed by Efe Boyd MD 06/16/2018 11:03 A
--- NOTE | 2018-06-16 11:16 | REP ---
Chest two views HISTORY: Trauma Comparison: 06/04/2017 The lungs are clear. The heart is normal in size. The pulmonary vasculature is normal in appearance. The bony structure is intact. IMPRESSION: No acute disease. Electronically Signed by Chava Alexander MD 06/16/2018 11:06 A
[2018-06-16 12:00] VITALS: BP 156/97
== END 2018-06-16 12:01 | disposition home or self-care (01) ==
LOC: M ED 09:41
DX: T14.8XXA Other injury of unspecified body region, initial encounter (principal); W19.XXXA Unspecified fall, initial encounter; Y92.099 Unspecified place in other non-institutional residence as the place of occurrence of the external cause; Y93.9 Activity, unspecified; Y99.9 Unspecified external cause status; Z79.899 Other long term (current) drug therapy; Z88.0 Allergy status to penicillin; Z88.8 Allergy status to other drugs, medicaments and biological substances

== ENCOUNTER → 2018-07-01 | Outpatient (CLI) | payer BC ==
[~2018-07-01] MED LIST changes: +GABA-1171; +ISOVUE-370 76% 100ML VIAL (Q9967) As Ordered ONE
--- NOTE | 2018-07-01 09:57 | REP ---
CT CHEST WITH IV CONTRAST: HISTORY: Chronic cough. Comparison is made with chest x-ray from June 16, 2018. There is a comparison chest CT study from June 20, 2017. CT CONTRAST DOSE: 75 mL of intravenous Isovue 370. CT FINDINGS: Preliminary digital cake icer and packer radiograph is unremarkable. There is a new patchy peribronchovascular pattern of infiltrate in the left lower lobe consistent with acute inflammatory disease (pneumonia). There is a right lower lobe noncalcified pulmonary nodule visible on page 48 of 116 in series of 201 of today's study. This measures 6 mm in greatest diameter. It measured 6 mm on the June 20, 2017 study. In fact, it is unchanged from the August 24, 2016 prior exam. No other significant pulmonary nodule is seen. No pulmonary mass lesion is observed. There is mild bilateral hilar and mediastinal lymphadenopathy. A right pretracheal lymph node measures 14 mm in short axis dimension, previously 13 mm by my measurement. These lymph nodes appear to be unchanged. Right paratracheal lymph node enlargement is seen measuring 15 mm across, previously 20 mm. Small hilar lymph nodes are unchanged. There is some residual thymic tissue in the anterior mediastinum which appears to be unchanged. No adrenal lesion is seen on either side. The visualized upper abdominal structures are unremarkable. No bony abnormality. IMPRESSION: 1. New peribronchovascular left lower lobe infiltrate consistent with pneumonia. 2. Stable noncalcified 6 mm granulomatous nodule right lower lobe. 3. Mild bilateral hilar and mediastinal lymphadenopathy unchanged from most recent prior study of June 20, 2017. The adenopathy is generally less prominent than on the August 24, 2016 study. Electronically Signed by Efe Boyd MD 07/01/2018 10:25 A
== END ==
LOC: M RAD 08:04
PROVIDERS: ATTEND Internal Medicine Infectious Disease
DX: R05 Cough (principal)
CPT/HCPCS: 71260; Q9967

== ENCOUNTER → 2018-07-22 | Outpatient (REF) | payer BC ==
[~2018-07-22] MED LIST changes: -ISOVUE-370 76% 100ML VIAL (Q9967) As Ordered ONE
[2018-07-22 19:38] LABS: HEMATOCRIT 45.1 % (42.0-52.0); MEAN CORPUSCULAR HEMOGLOBIN 30.4 pg (27.0-33.0); MEAN CORPUSCULAR HGB CONC 33.3 g/dl (32.0-36.5); MEAN CORPUSCULAR VOLUME 91.3 fl (80.0-96.0); PLATELET COUNT, AUTOMATED 243 10^3/uL (150-450); RED BLOOD COUNT 4.94 10^6/uL (4.30-6.10); WHITE BLOOD COUNT 6.6 10^3/uL (4.0-10.0)
[2018-07-22 19:54] LABS: ALBUMIN 4.4 GM/DL (3.2-5.2); ALT/SGPT 20 U/L (12-78); BILIRUBIN,DIRECT < 0.1 MG/DL (0.0-0.2); BILIRUBIN,TOTAL 0.4 MG/DL (0.2-1.0); FREE T4 0.85 NG/DL (0.76-1.46); TOTAL PROTEIN 7.1 GM/DL (6.4-8.2)
== END ==
LOC: M LABDRWAD 19:21
PROVIDERS: ATTEND Internal Medicine Infectious Disease
DX: B20 Human immunodeficiency virus [HIV] disease (principal); R53.82 Chronic fatigue, unspecified

== ENCOUNTER → 2018-09-23 | Outpatient (CLI) | payer BC ==
--- NOTE | 2018-09-23 22:18 | REP ---
Clinical: Left knee pain Technique: AP, lateral, bilateral oblique and sunrise views left knee . Findings: The osseous structures and joint spaces are intact and normal. There is no evidence for acute fracture or dislocation. No joint effusion is appreciated. Surrounding soft tissues are unremarkable. No subcutaneous emphysema or radiodense foreign body. Impression: Normal examination. No acute fracture or dislocation. Electronically Signed by Norm Lopez MD 09/23/2018 10:09 P
== END ==
LOC: M ADAMS 16:05
PROVIDERS: ATTEND Internal Medicine Infectious Disease
DX: M25.562 Pain in left knee (principal)

== ENCOUNTER → 2018-10-20 | Outpatient (REF) | payer BC ==
[2018-10-20 16:23] LABS: ALBUMIN 4.1 GM/DL (3.2-5.2); ALT/SGPT 19 U/L (12-78); BILIRUBIN,TOTAL 0.5 MG/DL (0.2-1.0); BLOOD UREA NITROGEN 14 MG/DL (7-18); C REACTIVE PROTEIN QUANTITATIV < 0.30 MG/DL (0.00-0.30); CALCIUM LEVEL 8.9 MG/DL (8.5-10.1); CARBON DIOXIDE LEVEL 28 MEQ/L (21-32); CHLORIDE LEVEL 108 MEQ/L (98-107); CREATININE FOR GFR 0.82 MG/DL (0.70-1.30); GLOMERULAR FILTRATION RATE > 60.0 (>60); GLUCOSE, FASTING 100 MG/DL (70-100); POTASSIUM SERUM 3.9 MEQ/L (3.5-5.1); SODIUM LEVEL 141 MEQ/L (136-145); TOTAL PROTEIN 7.3 GM/DL (6.4-8.2)
[2018-10-20 16:33] LABS: BASO % 0.3 % (0.0-1.0); EOS % 0.5 % (0.0-3.0); HEMATOCRIT 46.8 % (42.0-52.0); LYMPH # 0.9 10^3/uL (1.5-6.5); LYMPH % 25.3 % (24.0-44.0); MEAN CORPUSCULAR HEMOGLOBIN 30.9 pg (27.0-33.0); MEAN CORPUSCULAR HGB CONC 34.2 g/dl (32.0-36.5); MEAN CORPUSCULAR VOLUME 90.5 fl (80.0-96.0); MONO # 0.3 10^3/uL (0.0-0.8); MONO % 8.1 % (0.0-5.0); NEUTROPHILS # 2.5 10^3/uL (1.8-7.7); NEUTROPHILS % 65.8 % (36.0-66.0); PLATELET COUNT, AUTOMATED 210 10^3/uL (150-450); RED BLOOD COUNT 5.17 10^6/uL (4.30-6.10); WHITE BLOOD COUNT 3.7 10^3/uL (4.0-10.0)
[2018-10-20 19:16] LABS: ERYTHROCYTE SEDIMENTATION RATE 2 mm/hr (0-15)
[2018-10-24 00:11] LABS: % CD8 Pos Lymph 51.2 % (12.0-35.5); %CD4 Pos Lymphs 25.2 % (30.8-58.5); ABS Lymphs 0.9 x10E3/uL (0.7-3.1); ABS Monocytes 0.3 x10E3/uL (0.1-0.9); ABS Neutophils 2.4 x10E3/uL (1.4-7.0); Abs CD4 Helper 227 /uL (359-1519); Abs CD8 Suppres 461 /uL (109-897); CD4/CD8 Ratio 0.49 (0.92-3.72); Eosinophils 1 % (Not Estab.); HCT 46.1 % (37.5-51.0); HGB 15.4 g/dL (13.0-17.7); HIV-1 RNA PCR QUANT 2 LC550285 <20 copies/mL (.); Immature Grans 0 % (Not Estab.); Lyme Disease IgG/IgM Antibodie <0.91 ISR (0.00-0.90); Lyme Disease IgM Ab Quantitati <0.80 index (0.00-0.79); Lymphocytes 25 % (Not Estab.); MCH 30.6 pg (26.6-33.0); MCHC 33.4 g/dL (31.5-35.7); MCV 92 fL (79-97); Monocytes 7 % (Not Estab.); Neutrophils 67 % (Not Estab.); Platelets 242 x10E3/uL (150-450); RBC 5.04 x10E6/uL (4.14-5.80); RDW 14.9 % (12.3-15.4); WBC 3.6 x10E3/uL (3.4-10.8)
== END ==
LOC: M LABDRAW1 15:26
PROVIDERS: ATTEND Internal Medicine Infectious Disease
DX: B20 Human immunodeficiency virus [HIV] disease (principal); M25.562 Pain in left knee

== ENCOUNTER 2018-12-12 12:52 | Day surgery (SDC) | payer BC ==
[~2018-12-12] VITALS: Ht 165.1 cm; Wt 59.9 kg
[~2018-12-12 12:52] MED LIST changes: +**UNRESOLVED NON-FORMULARY MED ORDER XX SCH; +DOXY-350 PO; +ISON300T18 PO; +LR 1,000 ML IV ONE; +MULTCAP PO
[2018-12-12] MEDS ORDERED: CLINDAMYCIN 900 MG in IV 1 EA IV ONE (14:00)
[2018-12-12] MEDS ORDERED: PROPOFOL 200 MG/20 ML VIAL As Ordered ONE (14:26)
[2018-12-12] MEDS ORDERED: fentaNYL 100 MCG/2 ML INJECTION (J3010) As Ordered ONE ×2 (14:26→17:46)
[2018-12-12] MEDS ORDERED: LIDOCAINE 2% INJ 100 MG/5 ML SDV (FOR ANES.) As Ordered ONE (14:26)
[2018-12-12] MEDS ORDERED: MIDAZOLAM INJ 2 MG/2 ML VIAL (J2250) As Ordered ONE (14:27)
[2018-12-12] MEDS ORDERED: BUPIVACAINE/EPIN 0.25% 30 ML VIAL As Ordered ONE ×2 (15:37→16:48)
[2018-12-12] MEDS ORDERED: DESFLURANE 240 ML INHALANT As Ordered ONE (16:16)
[2018-12-12] MEDS ORDERED: ONDANSETRON 4MG/2ML VIAL (J2405) As Ordered ONE ×2 (16:33→17:38)
[2018-12-12] MEDS ORDERED: KETOROLAC 60 MG/2 ML VIAL (J1885) As Ordered ONE (16:34)
[2018-12-12] MEDS ORDERED: METOCLOPRAMIDE INJ 10MG/2ML VIAL (J2765) As Ordered ONE (16:34)
[2018-12-12] MEDS ORDERED: PERCOCET 5MG/325MG TAB As Ordered ONE (17:38)
[2018-12-12] MEDS ORDERED: PERCOCET 5MG/325MG TAB PO PRN (17:45)
[2018-12-12] MEDS ORDERED: HYDROMORPHONE HCL 0.5 MG/ 0.5 ML SYRINGE (J1170 PER 1) IV PRN (17:45)
[2018-12-12] MEDS ORDERED: LR 1,000 ML IV SCH (17:45)
[2018-12-12] MEDS ORDERED: ONDANSETRON 4MG/2ML VIAL (J2405) IV PRN (17:45)
[2018-12-12] MEDS: fentaNYL 100 MCG/2 ML INJECTION (J3010) IV PRN ×2 (17:46→17:51)
[2018-12-12] MEDS ORDERED: oxyCODONE 5MG TAB PO PRN ×2 (18:00)
[2018-12-12] MEDS ORDERED: MORPHINE 4 MG/ML 1ML VIAL/SYRINGE (J2270) IV PRN (18:00)
--- NOTE | 2018-12-12 18:07 | REP ---
FLUOROSCOPIC GUIDANCE FOR LEFT KNEE SURGERY: 12/12/2018. Clinical history: Osteochondritis Desiccans left knee. Findings: Multiple C-arm images were provided for Dr. Dye of the orthopedic division for left knee surgery. A variety of projections centered over the lateral femoral condyle with probes and drills utilized. Images are available on the PACS for review. Fluoroscopy time: 23 seconds. Electronically Signed by Magdy Dc MD 12/12/2018 08:25 P
--- NOTE | 2018-12-12 19:03 | RO ---
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 PROCEDURE: 1. Diagnostic knee scope. 2. Extensive synovectomy of medial and lateral compartment and anterior compartment. 3. Core decompression of left lateral femoral condyle with antegrade drilling. SURGEON: Dr. Carlos Dye DIELECTRIC TESTING MACHINE OPERATOR: None. ANESTHESIA: OPERATIVE INDICATIONS: This is a pleasant 28-year-old male who has a history of HIV and TB who came in for recurrence of lateral knee pain that failed nonoperative modes and methods of treatment. We discussed osteochondritis dissecans (OCD) debridement and microfracture versus antegrade femur drilling for core decompression. All benefits and risks were discussed, including but not limited to damage to surrounding structures, infection, incomplete relief and need for further surgery. The patient expressed understanding and agreement with this plan. PREOPERATIVE ANTIBIOTICS: 900 of Clindamycin. TOURNIQUET TIME: 42 minutes. COMPLICATIONS: None. SPECIMENS: None. DRAINS: None. DESCRIPTION OF PROCEDURE: The patient was rolled back to the operating room (OR), underwent general anesthesia, at which point a time-out was had for confirming site, side and surgery. We injected 20 mL of 0.25% Marcaine and epinephrine (epi) into the knee joint. At which point, we prepped and draped the patient in the usual fashion. We then had a second time-out confirming site, side and surgery and elevated the tourniquet up to 250 mmHg. At which point, we made two stab incisions for the medial and lateral portals. We started in the anterior patellofemoral compartment. We quickly encountered significant synovium blocking our entry both into the patellofemoral compartment along with medial and lateral compartment. My guess is that this is a reaction to the avascular necrosis. It required extensive debridement of all three compartments. Once adequate visualization was had, we examined both the anterior and medial and lateral compartments, all menisci intact along with all cartilage. We had more thorough inspection of that lateral compartment and the entire distal femur, did not notice any softening of the cartilage or any loose fragments or foreign bodies. At this point, we decided to proceed with antegrade drilling for core decompression of the left lateral condyle. We removed the scope, closed up the two portals with #3-0 nylon and then made a small 2 cm incision over the lateral epicondyle. Using the x-ray, we confirmed our position on both AP and lateral and drilled the entire area of AVN with a 2.5 mm drill bit. Once I felt like this was adequately decompressed, we irrigated the wound and closed with #3-0 Vicryl and #3-0 nylon. At which point, we dressed the wounds with Adaptic gauze, ABD, Kerlix and Anthony. We let down the tourniquet; it was timed approximately 40 minutes. At which point, the patient was awoken from anesthesia and taken stably to the post-anesthesia care unit (PACU). POSTOPERATIVE PLAN: The patient will be discharged home with pain medications. He will be touchdown weightbearing with crutches. We will likely continue this for approximately 6 weeks. However, I did encourage him for range of motion of the knee. He will be taken 325 mg aspirin once a day to help minimize deep vein thrombosis (DVT), prophylaxis.
[2018-12-12 19:30] VITALS: BP 136/83
== END 2018-12-12 19:35 | disposition home or self-care (01) ==
LOC: M SDC 12:52
PROVIDERS: ATTEND Orthopaedic Surgery Hand Surgery
DX: M87.052 Idiopathic aseptic necrosis of left femur (principal); M93.262 Osteochondritis dissecans, left knee; B20 Human immunodeficiency virus [HIV] disease; A69.20 Lyme disease, unspecified; A15.8 Other respiratory tuberculosis; Z79.899 Other long term (current) drug therapy; G43.909 Migraine, unspecified, not intractable, without status migrainosus; Z88.0 Allergy status to penicillin
CPT/HCPCS: 29876; 29879; 76000; J1885; J2250; J2405; J2765; J3010

== ENCOUNTER → 2019-01-20 | Outpatient (REF) | payer BC ==
[~2019-01-20] MED LIST changes: -**UNRESOLVED NON-FORMULARY MED ORDER XX SCH; -LR 1,000 ML IV ONE
[2019-01-20 16:36] LABS: ALBUMIN 4.3 GM/DL (3.2-5.2); ALT/SGPT 24 U/L (12-78); BILIRUBIN,TOTAL 0.7 MG/DL (0.2-1.0); BLOOD UREA NITROGEN 11 MG/DL (7-18); CALCIUM LEVEL 9.3 MG/DL (8.5-10.1); CARBON DIOXIDE LEVEL 31 MEQ/L (21-32); CHLORIDE LEVEL 104 MEQ/L (98-107); CREATININE FOR GFR 1.12 MG/DL (0.70-1.30); GLOMERULAR FILTRATION RATE > 60.0 (>60); GLUCOSE, FASTING 74 MG/DL (70-100); POTASSIUM SERUM 4.2 MEQ/L (3.5-5.1); SODIUM LEVEL 141 MEQ/L (136-145); TOTAL PROTEIN 7.6 GM/DL (6.4-8.2)
== END ==
LOC: M SFHCPLAZ 14:07
PROVIDERS: ATTEND Internal Medicine Infectious Disease
DX: B45.1 Cerebral cryptococcosis (principal); B20 Human immunodeficiency virus [HIV] disease

== ENCOUNTER → 2019-04-23 | Outpatient (REF) | payer BC ==
[2019-04-23 11:22] LABS: ALBUMIN 4.4 GM/DL (3.2-5.2); ALT/SGPT 25 U/L (12-78); BILIRUBIN,TOTAL 0.9 MG/DL (0.2-1.0); BLOOD UREA NITROGEN 12 MG/DL (7-18); CALCIUM LEVEL 9.6 MG/DL (8.5-10.1); CARBON DIOXIDE LEVEL 28 MEQ/L (21-32); CHLORIDE LEVEL 107 MEQ/L (98-107); CREATININE FOR GFR 0.98 MG/DL (0.70-1.30); GLOMERULAR FILTRATION RATE > 60.0 (>60); GLUCOSE, FASTING 72 MG/DL (70-100); POTASSIUM SERUM 4.8 MEQ/L (3.5-5.1); SODIUM LEVEL 141 MEQ/L (136-145); TOTAL PROTEIN 7.4 GM/DL (6.4-8.2)
[2019-04-28 00:06] LABS: %CD4 Pos Lymphs 23.5 % (30.8-58.5); ABS Lymphs 1.4 x10E3/uL (0.7-3.1); ABS Monocytes 0.4 x10E3/uL (0.1-0.9); ABS Neutophils 2.1 x10E3/uL (1.4-7.0); Abs CD4 Helper 329 /uL (359-1519); Abs CD8 Suppres 742 /uL (109-897); CD4/CD8 Ratio 0.44 (0.92-3.72); Eosinophils 1 % (Not Estab.); HCT 43.9 % (37.5-51.0); HGB 15.6 g/dL (13.0-17.7); HIV-1 RNA PCR QUANT 2 LC550285 <20 copies/mL (.); Immature Grans 0 % (Not Estab.); Lymphocytes 35 % (Not Estab.); MCHC 35.5 g/dL (31.5-35.7); MCV 87 fL (79-97); Monocytes 9 % (Not Estab.); Neutrophils 55 % (Not Estab.); Platelets 228 x10E3/uL (150-450); RBC 5.04 x10E6/uL (4.14-5.80); RDW 14.5 % (11.6-15.4); WBC 3.9 x10E3/uL (3.4-10.8)
== END ==
LOC: M SFHCPLAZ 08:05
PROVIDERS: ATTEND Internal Medicine Infectious Disease
DX: B20 Human immunodeficiency virus [HIV] disease (principal)

== ENCOUNTER → 2019-05-19 | Outpatient (CLI) | payer BC ==
--- NOTE | 2019-05-19 18:48 | REP ---
CHEST, TWO VIEWS: There is no evidence of acute infiltrate. No pleural effusion is seen. The heart is normal in size. The mediastinal silhouette is unremarkable. The visualized osseous structures are intact. IMPRESSION: No acute pulmonary disease. Electronically Signed by Zhou Arteaga MD 05/19/2019 08:04 P
== END ==
LOC: M LRY 16:57
PROVIDERS: ATTEND Physician Assistant
DX: R05 Cough (principal)

== ENCOUNTER → 2020-02-25 | Outpatient (REF) | payer BC ==
[~2020-02-25] MED LIST changes: +CYCL-707 PO; -CYCL10TA PO
[2020-02-25 12:02] LABS: ALBUMIN 4.2 GM/DL (3.2-5.2); ALT/SGPT 25 U/L (12-78); BILIRUBIN,TOTAL 0.6 MG/DL (0.2-1.0); BLOOD UREA NITROGEN 17 MG/DL (7-18); CALCIUM LEVEL 9.3 MG/DL (8.5-10.1); CARBON DIOXIDE LEVEL 26 MEQ/L (21-32); CHLORIDE LEVEL 110 MEQ/L (98-107); CHOLESTEROL LEVEL 183 MG/DL (<200); CHOLESTEROL RISK RATIO 3.452 (<5); CREATININE FOR GFR 0.88 MG/DL (0.70-1.30); GLOMERULAR FILTRATION RATE > 60.0 (>60); GLUCOSE, FASTING 73 MG/DL (70-100); HDL CHOLESTEROL 53 MG/DL (>40); LDL CHOLESTEROL 120 MG/DL (<100); NON-HDL-C 130 MG/DL; POTASSIUM SERUM 4.5 MEQ/L (3.5-5.1); SODIUM LEVEL 140 MEQ/L (136-145); TOTAL PROTEIN 7.1 GM/DL (6.4-8.2); TRIGLYCERIDES LEVEL 52 MG/DL (<150)
[2020-02-25 14:11] LABS: TOTAL 25(OH) VITAMIN D 32.4 NG/ML (30.0-100.0)
[2020-02-27 13:14] LABS: % CD8 Pos Lymph 51.5 % (12.0-35.5); %CD4 Pos Lymphs 27.9 % (30.8-58.5); ABS Lymphs 1.2 x10E3/uL (0.7-3.1); ABS Monocytes 0.4 x10E3/uL (0.1-0.9); ABS Neutophils 2.1 x10E3/uL (1.4-7.0); Abs CD4 Helper 335 /uL (359-1519); Abs CD8 Suppres 618 /uL (109-897); CD4/CD8 Ratio 0.54 (0.92-3.72); Eosinophils 1 % (Not Estab.); HCT 44.6 % (37.5-51.0); HGB 15.4 g/dL (13.0-17.7); HIV-1 RNA PCR QUANT 2 LC550285 <20 copies/mL (.); Immature Grans 0 % (Not Estab.); Lymphocytes 33 % (Not Estab.); MCH 30.7 pg (26.6-33.0); MCHC 34.5 g/dL (31.5-35.7); MCV 89 fL (79-97); Monocytes 12 % (Not Estab.); Neutrophils 54 % (Not Estab.); Platelets 206 x10E3/uL (150-450); RBC 5.01 x10E6/uL (4.14-5.80); RDW 12.8 % (11.6-15.4); WBC 3.8 x10E3/uL (3.4-10.8)
== END ==
LOC: M SFHCPLAZ 09:01
PROVIDERS: ATTEND Internal Medicine Infectious Disease
DX: B20 Human immunodeficiency virus [HIV] disease (principal); Z13.220 Encounter for screening for lipoid disorders

== ENCOUNTER → 2020-08-16 | Outpatient (REF) | payer BC ==
[2020-08-16 15:48] LABS: ALBUMIN 4.5 GM/DL (3.2-5.2); ALT/SGPT 25 U/L (12-78); BILIRUBIN,TOTAL 0.9 MG/DL (0.2-1.0); BLOOD UREA NITROGEN 14 MG/DL (7-18); CARBON DIOXIDE LEVEL 29 MEQ/L (21-32); CHLORIDE LEVEL 104 MEQ/L (98-107); CREATININE FOR GFR 0.97 MG/DL (0.70-1.30); GLOMERULAR FILTRATION RATE > 60.0 (>60); GLUCOSE, FASTING 82 MG/DL (70-100); SODIUM LEVEL 137 MEQ/L (136-145); TOTAL PROTEIN 7.5 GM/DL (6.4-8.2)
[2020-08-19 01:07] LABS: %CD4 Pos Lymphs 28.7 % (30.8-58.5); ABS Lymphs 1.1 x10E3/uL (0.7-3.1); ABS Monocytes 0.5 x10E3/uL (0.1-0.9); ABS Neutophils 2.6 x10E3/uL (1.4-7.0); Abs CD4 Helper 316 /uL (359-1519); Abs CD8 Suppres 550 /uL (109-897); CD4/CD8 Ratio 0.57 (0.92-3.72); Eosinophils 1 % (Not Estab.); HGB 15.8 g/dL (13.0-17.7); HIV-1 RNA PCR QUANT 2 LC550285 <20 copies/mL (.); Immature Grans 0 % (Not Estab.); Lymphocytes 26 % (Not Estab.); MCH 30.5 pg (26.6-33.0); MCHC 32.9 g/dL (31.5-35.7); MCV 93 fL (79-97); Monocytes 11 % (Not Estab.); Neutrophils 61 % (Not Estab.); Platelets 231 x10E3/uL (150-450); RBC 5.18 x10E6/uL (4.14-5.80); RDW 13.3 % (11.6-15.4); WBC 4.2 x10E3/uL (3.4-10.8)
== END ==
LOC: M SFHCPLAZ 12:47
PROVIDERS: ATTEND Internal Medicine Infectious Disease
DX: B20 Human immunodeficiency virus [HIV] disease (principal)

== ENCOUNTER → 2021-01-19 | Outpatient (CLI) | payer BC ==
[~2021-01-19] MED LIST changes: -IBUP200T45 PO; +IBUP200T46 PO
[2021-01-19 11:06] LABS: ALBUMIN 4.2 GM/DL (3.2-5.2); ALT/SGPT 24 U/L (12-78); BILIRUBIN,TOTAL 0.4 MG/DL (0.2-1.0); BLOOD UREA NITROGEN 17 MG/DL (7-18); CALCIUM LEVEL 9.4 MG/DL (8.5-10.1); CARBON DIOXIDE LEVEL 26 MEQ/L (21-32); CHLORIDE LEVEL 111 MEQ/L (98-107); CREATININE FOR GFR 1.01 MG/DL (0.70-1.30); GLOMERULAR FILTRATION RATE > 60.0 (>60); GLUCOSE, FASTING 89 MG/DL (70-100); POTASSIUM SERUM 4.7 MEQ/L (3.5-5.1); SODIUM LEVEL 141 MEQ/L (136-145)
[2021-01-20 17:09] LABS: % CD8 Pos Lymph 49.7 % (12.0-35.5); %CD4 Pos Lymphs 28.2 % (30.8-58.5); ABS Eosinophils 0.1 x10E3/uL (0.0-0.4); ABS Lymphs 1.3 x10E3/uL (0.7-3.1); ABS Monocytes 0.6 x10E3/uL (0.1-0.9); ABS Neutophils 2.6 x10E3/uL (1.4-7.0); Abs CD4 Helper 367 /uL (359-1519); Abs CD8 Suppres 646 /uL (109-897); CD4/CD8 Ratio 0.57 (0.92-3.72); Eosinophils 2 % (Not Estab.); HCT 46.2 % (37.5-51.0); HGB 16.5 g/dL (13.0-17.7); HIV-1 RNA PCR QUANT 2 LC550285 <20 copies/mL (.); Immature Grans 0 % (Not Estab.); Lymphocytes 28 % (Not Estab.); MCH 31.9 pg (26.6-33.0); MCHC 35.7 g/dL (31.5-35.7); MCV 89 fL (79-97); Monocytes 13 % (Not Estab.); Neutrophils 57 % (Not Estab.); Platelets 205 x10E3/uL (150-450); RBC 5.18 x10E6/uL (4.14-5.80); RDW 13.1 % (11.6-15.4); WBC 4.6 x10E3/uL (3.4-10.8)
== END ==
LOC: M PLALAB 08:51
PROVIDERS: ATTEND Internal Medicine Infectious Disease
DX: B20 Human immunodeficiency virus [HIV] disease (principal)

== ENCOUNTER → 2021-07-31 | Outpatient (CLI) | payer OTHER ==
[~2021-07-31] MED LIST changes: -FLUC200T2 PO; +FLUC200T4 PO
[2021-07-31 11:27] LABS: ALT/SGPT 24 U/L (12-78); BILIRUBIN,TOTAL 0.4 MG/DL (0.2-1.0); BLOOD UREA NITROGEN 19 MG/DL (7-18); CARBON DIOXIDE LEVEL 27 MEQ/L (21-32); CHLORIDE LEVEL 108 MEQ/L (98-107); CREATININE FOR GFR 1.07 MG/DL (0.70-1.30); GLOMERULAR FILTRATION RATE > 60.0 (>60); GLUCOSE, FASTING 84 MG/DL (70-100); SODIUM LEVEL 141 MEQ/L (136-145)
[2021-08-01 19:07] LABS: % CD8 Pos Lymph 52.1 % (12.0-35.5); %CD4 Pos Lymphs 25.4 % (30.8-58.5); ABS Eosinophils 0.1 x10E3/uL (0.0-0.4); ABS Lymphs 1.2 x10E3/uL (0.7-3.1); ABS Monocytes 0.6 x10E3/uL (0.1-0.9); ABS Neutophils 3.1 x10E3/uL (1.4-7.0); Abs CD4 Helper 305 /uL (359-1519); Abs CD8 Suppres 625 /uL (109-897); CD4/CD8 Ratio 0.49 (0.92-3.72); Eosinophils 1 % (Not Estab.); HCT 44.8 % (37.5-51.0); HGB 15.4 g/dL (13.0-17.7); HIV-1 RNA PCR QUANT 2 LC550285 <20 copies/mL (.); Immature Grans 0 % (Not Estab.); Lymphocytes 24 % (Not Estab.); MCH 30.9 pg (26.6-33.0); MCHC 34.4 g/dL (31.5-35.7); MCV 90 fL (79-97); Monocytes 12 % (Not Estab.); Neutrophils 62 % (Not Estab.); Platelets 203 x10E3/uL (150-450); RBC 4.99 x10E6/uL (4.14-5.80); RDW 13.2 % (11.6-15.4)
== END ==
LOC: M PLALAB 08:38
PROVIDERS: ATTEND Internal Medicine Infectious Disease
DX: B20 Human immunodeficiency virus [HIV] disease (principal)

== ENCOUNTER → 2022-01-29 | Outpatient (CLI) | payer OTHER ==
[~2022-01-29] MED LIST changes: -DOXY-350 PO; +DOXY-444 PO
[2022-01-29 12:56] LABS: APPEARANCE, URINE MANUAL CLEAR (CLEAR); COLOR, URINE MANUAL YELLOW (YELLOW)
[2022-01-29 12:57] LABS: BILIRUBIN, URINE MANUAL NEGATIVE (NEGATIVE); BLOOD URINE MANUAL NEGATIVE (NEGATIVE); GLUCOSE, URINE (UA) MANUAL NEGATIVE (NEGATIVE); KETONE, URINE MANUAL NEGATIVE (NEGATIVE); LEUKOCYTE ESTERASE, URINE MAN NEGATIVE (NEGATIVE); NITRITE, URINE MANUAL NEGATIVE (NEGATIVE); PROTEIN, URINE MANUAL NEGATIVE (NEGATIVE); SPECIFIC GRAVITY,URINE MANUAL 1.015 (1.002-1.035); UROBILINOGEN, URINE MANUAL NORMAL (NORMAL)
[2022-01-29 13:14] LABS: ALBUMIN 4.1 GM/DL (3.2-5.2); ALT/SGPT 28 U/L (12-78); BILIRUBIN,TOTAL 0.5 MG/DL (0.2-1.0); BLOOD UREA NITROGEN 13 MG/DL (7-18); CALCIUM LEVEL 9.4 MG/DL (8.5-10.1); CARBON DIOXIDE LEVEL 30 MEQ/L (21-32); CHLORIDE LEVEL 107 MEQ/L (98-107); CREATININE FOR GFR 0.87 MG/DL (0.70-1.30); GLOMERULAR FILTRATION RATE > 60.0 (>60); GLUCOSE, FASTING 67 MG/DL (70-100); POTASSIUM SERUM 4.7 MEQ/L (3.5-5.1); SODIUM LEVEL 138 MEQ/L (136-145); TOTAL PROTEIN 6.9 GM/DL (6.4-8.2)
[2022-01-29 15:07] LABS: HEPATITIS C VIRUS ABY INDEX 0.1 INDEX (<0.8)
== END ==
LOC: M PLALAB 08:37
PROVIDERS: ATTEND Internal Medicine Infectious Disease
DX: B20 Human immunodeficiency virus [HIV] disease (principal)

== ENCOUNTER → 2022-08-06 | Outpatient (CLI) | payer OTHER ==
[2022-08-06 11:22] LABS: ALBUMIN 4.3 G/DL (3.2-5.2); ALKALINE PHOSPHATASE 67 U/L (46-116); ALT/SGPT 26 U/L (7.0-40); AST/SGOT 15 U/L (<34); BILIRUBIN,TOTAL 0.8 MG/DL (0.3-1.2); BLOOD UREA NITROGEN 11 MG/DL (9-23); CALCIUM LEVEL 9.7 MG/DL (8.5-10.1); CARBON DIOXIDE LEVEL 30 MMOL/L (20-31); CHLORIDE LEVEL 106 MMOL/L (98-107); CHOLESTEROL LEVEL 175 MG/DL (<200); CREATININE FOR GFR 0.94 MG/DL (0.70-1.30); GLOMERULAR FILTRATION RATE > 60.0 (>60); GLUCOSE, FASTING 86 MG/DL (60-100); LDL CHOLESTEROL 108.8 MG/DL (<100); POTASSIUM SERUM 4.6 MMOL/L (3.5-5.1); SODIUM LEVEL 139 MMOL/L (136-145); TOTAL PROTEIN 6.8 G/DL (5.7-8.2); TRIGLYCERIDES LEVEL 81 MG/DL (<150)
[2022-08-07 18:10] LABS: % CD8 Pos Lymph 49.7 % (12.0-35.5); %CD4 Pos Lymphs 24.8 % (30.8-58.5); ABS Eosinophils 0.1 x10E3/uL (0.0-0.4); ABS Lymphs 1.2 x10E3/uL (0.7-3.1); ABS Monocytes 0.5 x10E3/uL (0.1-0.9); ABS Neutophils 2.4 x10E3/uL (1.4-7.0); Abs CD4 Helper 298 /uL (359-1519); Abs CD8 Suppres 596 /uL (109-897); Eosinophils 2 % (Not Estab.); HCT 43.4 % (37.5-51.0); HGB 15.5 g/dL (13.0-17.7); HIV-1 RNA PCR QUANT 2 LC550285 <20 copies/mL (.); Immature Grans 0 % (Not Estab.); Lymphocytes 29 % (Not Estab.); MCH 31.1 pg (26.6-33.0); MCHC 35.7 g/dL (31.5-35.7); MCV 87 fL (79-97); Monocytes 11 % (Not Estab.); Neutrophils 57 % (Not Estab.); Platelets 210 x10E3/uL (150-450); RBC 4.98 x10E6/uL (4.14-5.80); WBC 4.2 x10E3/uL (3.4-10.8)
== END ==
LOC: M PLALAB 08:06
PROVIDERS: ATTEND Internal Medicine Infectious Disease
DX: B20 Human immunodeficiency virus [HIV] disease (principal)

== ENCOUNTER → 2022-08-21 | Outpatient (CLI) | payer OTHER ==
[2022-08-21 18:06] LABS: BASO % 0.4 % (0.0-1.0); EOS # 0.1 10^3/uL (0.0-0.5); EOS % 1.1 % (0.0-3.0); HEMATOCRIT 44.8 % (42.0-52.0); HEMOGLOBIN 15.4 g/dl (13.5-17.5); LYMPH # 1.4 10^3/uL (1.5-5.0); MEAN CORPUSCULAR HEMOGLOBIN 30.9 pg (27.0-33.0); MEAN CORPUSCULAR HGB CONC 34.4 g/dl (32.0-36.5); MEAN CORPUSCULAR VOLUME 89.8 fl (80.0-96.0); MONO # 0.6 10^3/uL (0.0-0.8); MONO % 11.6 % (2.0-8.0); NEUTROPHILS # 3.1 10^3/uL (1.5-8.5); NEUTROPHILS % 59.5 % (36.0-66.0); PLATELET COUNT, AUTOMATED 218 10^3/uL (150-450); RED BLOOD COUNT 4.99 10^6/uL (4.30-6.10); WHITE BLOOD COUNT 5.3 10^3/uL (4.0-10.0)
[2022-08-21 18:25] LABS: ERYTHROCYTE SEDIMENTATION RATE 2 mm/hr (0-15)
[2022-08-21 18:32] LABS: URIC ACID 6.5 MG/DL (3.7-9.2)
[2022-08-21 18:35] LABS: C REACTIVE PROTEIN QUANTITATIV < 0.40 MG/DL (<1.0)
[2022-08-21 18:37] LABS: RHEUMATOID FACTOR QUANT < 3.5 IU/ML (<14)
== END ==
LOC: M PLALAB 15:51
PROVIDERS: ATTEND Orthopaedic Surgery
DX: M25.552 Pain in left hip (principal)

== ENCOUNTER → 2023-03-05 | Outpatient (CLI) | payer OTHER ==
[2023-03-05 14:58] LABS: APPEARANCE, URINE CLEAR (CLEAR); BACTERIA, URINE AUTO NEGATIVE (NEGATIVE); BILIRUBIN, URINE AUTO NEGATIVE (NEGATIVE); BLOOD, URINE BLOOD NEGATIVE (NEGATIVE); COLOR, URINE YELLOW (YELLOW); GLUCOSE, URINE (UA) AUTO NEGATIVE (NEGATIVE); KETONE, URINE AUTO NEGATIVE (NEGATIVE); LEUKOCYTE ESTERASE, URINE AUTO NEGATIVE (NEGATIVE); MUCUS, URINE SMALL (NEGATIVE); NITRITE, URINE AUTO NEGATIVE (NEGATIVE); PROTEIN, URINE AUTO NEGATIVE (NEGATIVE); RBC, URINE AUTO 0 /HPF (0-3); SPECIFIC GRAVITY URINE AUTO 1.008 (1.002-1.035); SQUAMOUS EPITHELIAL CELL UR AU 0 /HPF (0-6); UROBILINOGEN, URINE AUTO 0.2 mg/dL (0.0-2.0); WBC, URINE AUTO 0 /HPF (0-3)
[2023-03-05 15:04] LABS: ALBUMIN 4.6 G/DL (3.2-5.2); ALKALINE PHOSPHATASE 76 U/L (46-116); ALT/SGPT 48 U/L (7.0-40); AST/SGOT 19 U/L (<34); BILIRUBIN,TOTAL 0.8 MG/DL (0.3-1.2); BLOOD UREA NITROGEN 16 MG/DL (9-23); CALCIUM LEVEL 10.4 MG/DL (8.5-10.1); CARBON DIOXIDE LEVEL 28 MMOL/L (20-31); CHLORIDE LEVEL 107 MMOL/L (98-107); CREATININE FOR GFR 0.97 MG/DL (0.70-1.30); GLOMERULAR FILTRATION RATE > 60.0 (>60); GLUCOSE, FASTING 94 MG/DL (60-100); SODIUM LEVEL 141 MMOL/L (136-145); TOTAL PROTEIN 7.3 G/DL (5.7-8.2)
[2023-03-05 15:07] LABS: TOTAL 25(OH) VITAMIN D 20.9 NG/ML (20.0-100.0)
== END ==
LOC: M PLALAB 08:47
PROVIDERS: ATTEND Internal Medicine Infectious Disease
DX: B20 Human immunodeficiency virus [HIV] disease (principal)

== ENCOUNTER → 2023-04-22 | Outpatient (CLI) | payer OTHER, MEDICARE ==
[2023-04-22 17:16] LABS: PLATELET COUNT, AUTOMATED 226 10^3/uL (150-450)
[2023-04-22 17:29] LABS: INR 1.01
[2023-04-22 17:30] LABS: PARTIAL THROMBOPLASTIN TIME 27.1 SECONDS (24.8-34.2)
== END ==
LOC: M PLALAB 15:56
PROVIDERS: ATTEND Physician Assistant Surgical
DX: Z01.812 Encounter for preprocedural laboratory examination (principal)

== ENCOUNTER 2023-06-13 15:17 | Emergency (ER) | payer OTHER, MEDICARE ==
[~2023-06-13] VITALS: Ht 165.1 cm; Wt 75.6 kg
[2023-06-13] MEDS ORDERED: BIKT1TAB (15:30)
[2023-06-13] MEDS ORDERED: VERA40TA (15:30)
[2023-06-13 16:16] LABS: BASO % 0.3 % (0.0-1.0); EOS % 0.4 % (0.0-3.0); HEMATOCRIT 46.2 % (42.0-52.0); HEMOGLOBIN 16.1 g/dl (13.5-17.5); LYMPH # 1.5 10^3/uL (1.5-5.0); LYMPH % 19.9 % (24.0-44.0); MEAN CORPUSCULAR HEMOGLOBIN 31.1 pg (27.0-33.0); MEAN CORPUSCULAR HGB CONC 34.8 g/dl (32.0-36.5); MEAN CORPUSCULAR VOLUME 89.4 fl (80.0-96.0); MONO # 0.6 10^3/uL (0.0-0.8); MONO % 8.2 % (2.0-8.0); NEUTROPHILS # 5.4 10^3/uL (1.5-8.5); NEUTROPHILS % 71.1 % (36.0-66.0); PLATELET COUNT, AUTOMATED 239 10^3/uL (150-450); RED BLOOD COUNT 5.17 10^6/uL (4.30-6.10); WHITE BLOOD COUNT 7.6 10^3/uL (4.0-10.0)
[2023-06-13 16:32] LABS: ALBUMIN 4.4 G/DL (3.2-5.2); ALKALINE PHOSPHATASE 77 U/L (46-116); ALT/SGPT 49 U/L (7.0-40); AST/SGOT 21 U/L (<34); BILIRUBIN,DIRECT 0.2 MG/DL (<0.4); BILIRUBIN,TOTAL 0.5 MG/DL (0.3-1.2); BLOOD UREA NITROGEN 17 MG/DL (9-23); CALCIUM LEVEL 9.9 MG/DL (8.5-10.1); CARBON DIOXIDE LEVEL 28 MMOL/L (20-31); CHLORIDE LEVEL 105 MMOL/L (98-107); CREATININE FOR GFR 0.96 MG/DL (0.70-1.30); GLOMERULAR FILTRATION RATE > 60.0 (>60); GLUCOSE, FASTING 83 MG/DL (60-100); POTASSIUM SERUM 4.2 MMOL/L (3.5-5.1); SODIUM LEVEL 138 MMOL/L (136-145); TOTAL PROTEIN 7.3 G/DL (5.7-8.2)
[2023-06-13 18:54] VITALS: BP 168/100; TEMP 97.6; O2SAT 99
[2023-06-13] MEDS ORDERED: LISI20TA33 PO (19:59)
[2023-06-13] MEDS: VERAPAMIL 40 MG TAB PO ONE (20:04)
[2023-06-13 20:12] LABS: APPEARANCE, URINE CLEAR (CLEAR); BACTERIA, URINE AUTO NEGATIVE (NEGATIVE); BILIRUBIN, URINE AUTO NEGATIVE (NEGATIVE); BLOOD, URINE BLOOD NEGATIVE (NEGATIVE); COLOR, URINE YELLOW (YELLOW); GLUCOSE, URINE (UA) AUTO NEGATIVE (NEGATIVE); KETONE, URINE AUTO NEGATIVE (NEGATIVE); LEUKOCYTE ESTERASE, URINE AUTO NEGATIVE (NEGATIVE); MUCUS, URINE SMALL (NEGATIVE); NITRITE, URINE AUTO NEGATIVE (NEGATIVE); PROTEIN, URINE AUTO NEGATIVE (NEGATIVE); RBC, URINE AUTO 1 /HPF (0-3); SPECIFIC GRAVITY URINE AUTO 1.018 (1.002-1.035); SQUAMOUS EPITHELIAL CELL UR AU 0 /HPF (0-6); UROBILINOGEN, URINE AUTO 0.2 mg/dL (0.0-2.0); WBC, URINE AUTO 0 /HPF (0-3)
== END 2023-06-13 20:05 | disposition home or self-care (01) ==
LOC: M ED 15:17
DX: I10 Essential (primary) hypertension (principal); I45.10 Unspecified right bundle-branch block; J45.909 Unspecified asthma, uncomplicated; G43.909 Migraine, unspecified, not intractable, without status migrainosus; F10.10 Alcohol abuse, uncomplicated; Z21 Asymptomatic human immunodeficiency virus [HIV] infection status; Z79.811 Long term (current) use of aromatase inhibitors; Z79.899 Other long term (current) drug therapy; Z88.0 Allergy status to penicillin; Z88.1 Allergy status to other antibiotic agents

== ENCOUNTER → 2023-09-03 | Outpatient (CLI) | payer MEDICARE, OTHER ==
[~2023-09-03] MED LIST changes: +BIKT1TAB; +DOXY-440 PO; -DOXY-444 PO; +LISI20TA33 PO; +VERA40TA
[2023-09-03 13:46] LABS: ALBUMIN 4.5 G/DL (3.2-5.2); ALKALINE PHOSPHATASE 76 U/L (46-116); ALT/SGPT 27 U/L (7.0-40); AST/SGOT < 8 U/L (<34); BILIRUBIN,TOTAL 0.7 MG/DL (0.3-1.2); BLOOD UREA NITROGEN 15 MG/DL (9-23); CALCIUM LEVEL 10.3 MG/DL (8.5-10.1); CARBON DIOXIDE LEVEL 29 MMOL/L (20-31); CHLORIDE LEVEL 105 MMOL/L (98-107); CREATININE FOR GFR 0.96 MG/DL (0.70-1.30); GLOMERULAR FILTRATION RATE > 60.0 (>60); GLUCOSE, FASTING 88 MG/DL (60-100); POTASSIUM SERUM 5.2 MMOL/L (3.5-5.1); SODIUM LEVEL 139 MMOL/L (136-145); TOTAL PROTEIN 7.2 G/DL (5.7-8.2)
[2023-09-03 14:39] LABS: APPEARANCE, URINE CLEAR (CLEAR); BACTERIA, URINE AUTO NEGATIVE (NEGATIVE); BILIRUBIN, URINE AUTO NEGATIVE (NEGATIVE); BLOOD, URINE BLOOD NEGATIVE (NEGATIVE); COLOR, URINE STRAW (YELLOW); GLUCOSE, URINE (UA) AUTO NEGATIVE (NEGATIVE); KETONE, URINE AUTO NEGATIVE (NEGATIVE); LEUKOCYTE ESTERASE, URINE AUTO NEGATIVE (NEGATIVE); NITRITE, URINE AUTO NEGATIVE (NEGATIVE); PROTEIN, URINE AUTO NEGATIVE (NEGATIVE); RBC, URINE AUTO 0 /HPF (0-3); SPECIFIC GRAVITY URINE AUTO 1.005 (1.002-1.035); SQUAMOUS EPITHELIAL CELL UR AU 0 /HPF (0-6); UROBILINOGEN, URINE AUTO 0.2 mg/dL (0.0-2.0); WBC, URINE AUTO 0 /HPF (0-3)
[2023-09-04 13:08] LABS: % CD4+ LYMPHS 25.6 % (30.8-58.5); ABSOLUTE CD4 HELPER 384 /uL (359-1519); BASOPHILS 0 % (Not Estab.); EOSINOPHILS 1 % (Not Estab.); LYMPHOCYTES 32 % (Not Estab.); LYMPHOCYTES ABSOLUTE 1.5 x10E3/uL (0.7-3.1); MCH 30.9 pg (26.6-33.0); MCHC 33.3 g/dL (31.5-35.7); MCV 93 fL (79-97); MONOCYTES 12 % (Not Estab.); MONOCYTES ABSOLUTE 0.6 x10E3/uL (0.1-0.9); NEUTROPHILS 55 % (Not Estab.); NEUTROPHILS ABSOLUTE 2.6 x10E3/uL (1.4-7.0); PLT 245 x10E3/uL (150-450); RBC 5.17 x10E6/uL (4.14-5.80); RDW 13.4 % (11.6-15.4); WBC 4.7 x10E3/uL (3.4-10.8)
[2023-09-11 11:18] LABS: HIV-1 RNA PCR QUANT 2 NOT DETECTED copies/mL (NOT DETECTED); HIV-1 RNA PCR QUANT 3 NOT DETECTED (NOT DETECTED)
== END ==
LOC: M PLALAB 08:40
PROVIDERS: ATTEND Internal Medicine Infectious Disease
DX: B20 Human immunodeficiency virus [HIV] disease (principal); I10 Essential (primary) hypertension; Z11.3 Encounter for screening for infections with a predominantly sexual mode of transmission; Z72.89 Other problems related to lifestyle

== ENCOUNTER → 2023-09-03 | Outpatient (REF) | payer MEDICARE, OTHER | LOC: M SFHCPLAZ 08:19 | PROVIDERS: ATTEND Internal Medicine Infectious Disease | DX: B20 Human immunodeficiency virus [HIV] disease (principal); I10 Essential (primary) hypertension ==

== ENCOUNTER → 2023-09-04 | Outpatient (CLI) | payer MEDICARE, OTHER | LOC: M LAB 16:00 | PROVIDERS: ATTEND Internal Medicine Infectious Disease | DX: I10 Essential (primary) hypertension (principal) ==

== ENCOUNTER → 2023-09-09 | Outpatient (REF) | payer MEDICARE, OTHER | LOC: M SFHCPLAZ 09:51 | PROVIDERS: ATTEND Internal Medicine Infectious Disease | DX: I10 Essential (primary) hypertension (principal) ==

== ENCOUNTER → 2023-09-30 | Outpatient (CLI) | payer MEDICARE, OTHER | LOC: M RAD 06:34 | PROVIDERS: ATTEND Internal Medicine Infectious Disease | DX: I10 Essential (primary) hypertension (principal) ==

== ENCOUNTER → 2023-10-14 | Outpatient (CLI) | payer MEDICARE, OTHER ==
[2023-10-14 18:35] LABS: BLOOD UREA NITROGEN 19 MG/DL (9-23); CALCIUM LEVEL 9.7 MG/DL (8.5-10.1); CARBON DIOXIDE LEVEL 29 MMOL/L (20-31); CHLORIDE LEVEL 103 MMOL/L (98-107); CREATININE FOR GFR 0.94 MG/DL (0.70-1.30); GLOMERULAR FILTRATION RATE > 60.0 (>60); GLUCOSE, FASTING 62 MG/DL (60-100); POTASSIUM SERUM 4.7 MMOL/L (3.5-5.1); SODIUM LEVEL 137 MMOL/L (136-145)
== END ==
LOC: M PLALAB 15:50
PROVIDERS: ATTEND Internal Medicine Infectious Disease
DX: I10 Essential (primary) hypertension (principal)

== ENCOUNTER → 2023-10-24 | Outpatient (CLI) | payer MEDICARE, OTHER ==
[2023-10-24 11:24] LABS: BASO % 0.3 % (0.0-1.0); EOS % 0.4 % (0.0-3.0); HEMATOCRIT 46.1 % (42.0-52.0); HEMOGLOBIN 15.8 g/dl (13.5-17.5); LYMPH # 1.9 10^3/uL (1.5-5.0); LYMPH % 26.1 % (24.0-44.0); MEAN CORPUSCULAR HGB CONC 34.3 g/dl (32.0-36.5); MEAN CORPUSCULAR VOLUME 90.4 fl (80.0-96.0); MONO # 0.9 10^3/uL (0.0-0.8); MONO % 12.6 % (2.0-8.0); NEUTROPHILS # 4.4 10^3/uL (1.5-8.5); NEUTROPHILS % 60.3 % (36.0-66.0); PLATELET COUNT, AUTOMATED 246 10^3/uL (150-450); WHITE BLOOD COUNT 7.3 10^3/uL (4.0-10.0)
[2023-10-24 11:32] LABS: HEMOGLOBIN A1c 4.7 % (4.0-6.0)
[2023-10-24 11:46] LABS: CREATININE, URINE 20.5 MG/DL
[2023-10-24 11:47] LABS: MALB URINE SIEMENS < 3.0 MG/L; MAU/CREAT RATIO 14.6 MCG/MG (0.0-30.0)
[2023-10-24 11:51] LABS: C REACTIVE PROTEIN QUANTITATIV < 0.40 MG/DL (<1.0); FREE T4 1.56 NG/DL (0.89-1.76); THYROID STIMULATING HORMONE 3.169 uIU/ML (0.55-4.78)
[2023-10-24 11:53] LABS: ALBUMIN 4.7 G/DL (3.2-5.2); ALKALINE PHOSPHATASE 83 U/L (46-116); ALT/SGPT 30 U/L (7.0-40); AST/SGOT < 8 U/L (<34); BILIRUBIN,TOTAL 0.6 MG/DL (0.3-1.2); BLOOD UREA NITROGEN 18 MG/DL (9-23); CALCIUM LEVEL 10.5 MG/DL (8.5-10.1); CARBON DIOXIDE LEVEL 29 MMOL/L (20-31); CHLORIDE LEVEL 103 MMOL/L (98-107); CHOLESTEROL LEVEL 208 MG/DL (<200); CHOLESTEROL RISK RATIO 3.48 (<5); CREATININE FOR GFR 1.04 MG/DL (0.70-1.30); GLOMERULAR FILTRATION RATE > 60.0 (>60); GLUCOSE, FASTING 86 MG/DL (60-100); HDL CHOLESTEROL 59.6 MG/DL (>40); LDL CHOLESTEROL 138.2 MG/DL (<100); NON-HDL-C 148.4 MG/DL; SODIUM LEVEL 138 MMOL/L (136-145); TOTAL PROTEIN 7.7 G/DL (5.7-8.2); TRIGLYCERIDES LEVEL 51 MG/DL (<150)
[2023-10-24 11:54] LABS: TOTAL 25(OH) VITAMIN D 33.2 NG/ML (20.0-100.0); VITAMIN B12 LEVEL 670 PG/ML (211-911)
[2023-10-24 13:55] LABS: PTH INTACT 49.9 PG/ML (18.5-88.0)
== END ==
LOC: M PLALAB 08:31
PROVIDERS: ATTEND Internal Medicine Hematology
DX: I10 Essential (primary) hypertension (principal); Z79.899 Other long term (current) drug therapy

== ENCOUNTER → 2023-11-20 | Outpatient (CLI) | payer MEDICARE, OTHER ==
[~2023-11-20] MED LIST changes: +ISOVUE-370 76% 100ML VIAL As Ordered ONE
== END ==
LOC: M RAD 15:23
PROVIDERS: ATTEND Internal Medicine Infectious Disease
DX: N20.0 Calculus of kidney (principal); I10 Essential (primary) hypertension
CPT/HCPCS: 74170; Q9967

== ENCOUNTER → 2024-03-24 | Outpatient (CLI) | payer OTHER ==
[~2024-03-24] MED LIST changes: +FLUC-1 PO; -FLUC200T4 PO; +ISON1TAB5 PO; -ISON300T18 PO; -ISOVUE-370 76% 100ML VIAL As Ordered ONE
[2024-03-24 11:57] LABS: ALBUMIN 4.4 G/DL (3.2-5.2); ALKALINE PHOSPHATASE 79 U/L (40-129); ALT/SGPT 29 U/L (7.0-40); AST/SGOT 11 U/L (<34); BILIRUBIN,TOTAL 0.6 MG/DL (0.3-1.2); BLOOD UREA NITROGEN 19 MG/DL (9-23); CALCIUM LEVEL 10.5 MG/DL (8.5-10.1); CARBON DIOXIDE LEVEL 29 MMOL/L (20-31); CHLORIDE LEVEL 106 MMOL/L (98-107); CREATININE FOR GFR 0.91 MG/DL (0.70-1.30); GLOMERULAR FILTRATION RATE > 60.0 (>60); GLUCOSE, FASTING 88 MG/DL (60-100); POTASSIUM SERUM 4.7 MMOL/L (3.5-5.1); SODIUM LEVEL 140 MMOL/L (136-145); TOTAL PROTEIN 7.1 G/DL (5.7-8.2)
[2024-03-24 12:44] LABS: GC DNA AMPLIFICATION NEGATIVE (NEGATIVE)
[2024-03-25 13:22] LABS: HIV-1 RNA PCR QUANT 2 NOT DETECTED copies/mL (NOT DETECTED); HIV-1 RNA PCR QUANT 3 NOT DETECTED (NOT DETECTED)
[2024-03-25 14:08] LABS: % CD4+ LYMPHS 26.8 % (30.8-58.5); ABSOLUTE CD4 HELPER 429 /uL (359-1519); BASOPHILS 0 % (Not Estab.); EOSINOPHILS 0 % (Not Estab.); HCT 46.4 % (37.5-51.0); HGB 15.4 g/dL (13.0-17.7); LYMPHOCYTES 23 % (Not Estab.); LYMPHOCYTES ABSOLUTE 1.6 x10E3/uL (0.7-3.1); MCH 30.3 pg (26.6-33.0); MCHC 33.2 g/dL (31.5-35.7); MCV 91 fL (79-97); MONOCYTES 11 % (Not Estab.); MONOCYTES ABSOLUTE 0.8 x10E3/uL (0.1-0.9); NEUTROPHILS 65 % (Not Estab.); NEUTROPHILS ABSOLUTE 4.5 x10E3/uL (1.4-7.0); PLT 265 x10E3/uL (150-450); RBC 5.08 x10E6/uL (4.14-5.80); RDW 12.8 % (11.6-15.4); WBC 6.9 x10E3/uL (3.4-10.8)
== END ==
LOC: M PLALAB 08:18
PROVIDERS: ATTEND Internal Medicine Infectious Disease
DX: Z11.3 Encounter for screening for infections with a predominantly sexual mode of transmission (principal)

== ENCOUNTER → 2024-10-13 | Outpatient (CLI) | payer OTHER ==
[2024-10-13 11:02] LABS: ALT/SGPT 29 U/L (7.0-40); AST/SGOT 15 U/L (<34); CALCIUM LEVEL 10.0 MG/DL (8.5-10.1); CARBON DIOXIDE LEVEL 27 MMOL/L (20-31); CHLORIDE LEVEL 101 MMOL/L (98-107); CHOLESTEROL LEVEL 179 MG/DL (<200); CHOLESTEROL RISK RATIO 3.25 (<5); CREATININE FOR GFR 0.96 MG/DL (0.70-1.30); GLOMERULAR FILTRATION RATE > 90.0 (>60); LDL CHOLESTEROL 99.2 MG/DL (<100); NON-HDL-C 124.0 MG/DL; POTASSIUM SERUM 4.2 MMOL/L (3.5-5.1); SODIUM LEVEL 140 MMOL/L (136-145); TRIGLYCERIDES LEVEL 124 MG/DL (<150)
[2024-10-15 21:03] LABS: % CD4 26 % (30-61); %CD8 54 % (12-42); ABSOLUTE CD4 CELLS 490 cells/uL (490-1740); ABSOLUTE CD8 CELLS 1017 cells/uL (180-1170); ABSOLUTE LYMPHOCYTES 1892 cells/uL (850-3900); CD4 CD8 RATIO 0.48 (0.86-5.00)
== END ==
LOC: M PLALAB 08:22
PROVIDERS: ATTEND Internal Medicine Infectious Disease
DX: E78.00 Pure hypercholesterolemia, unspecified (principal); B20 Human immunodeficiency virus [HIV] disease